=== PATIENT | male | born 1950 | race Caucasian/White ===

== ENCOUNTER → 2021-03-06 11:08 | Outpatient (CLI) | payer MEDICARE, OTHER, SELFPAY | PROVIDERS: PCP Family Medicine; Referring Provider Family Medicine; Visit Provider Family Medicine | DX: E11.628 Type 2 diabetes mellitus with other skin complications (principal); S91.302A Unspecified open wound, left foot, initial encounter; Z89.422 Acquired absence of other left toe(s); E11.51 Type 2 diabetes mellitus with diabetic peripheral angiopathy without gangrene; E11.22 Type 2 diabetes mellitus with diabetic chronic kidney disease; N18.30 Chronic kidney disease, stage 3 unspecified; Z79.01 Long term (current) use of anticoagulants; Z79.2 Long term (current) use of antibiotics | CPT/HCPCS: 11044; 11047; 97605; 99204; 99213 ==

== ENCOUNTER → 2021-03-12 09:53 | Outpatient (CLI) | payer MEDICARE, OTHER, SELFPAY | PROVIDERS: PCP Family Medicine; Referring Provider Family Medicine; Visit Provider Family Medicine | DX: M86.172 Other acute osteomyelitis, left ankle and foot (principal); S91.302A Unspecified open wound, left foot, initial encounter; Z79.2 Long term (current) use of antibiotics; Z79.01 Long term (current) use of anticoagulants; Z89.422 Acquired absence of other left toe(s); I73.9 Peripheral vascular disease, unspecified; E11.621 Type 2 diabetes mellitus with foot ulcer; N18.30 Chronic kidney disease, stage 3 unspecified | CPT/HCPCS: 11043; 97605 ==

== ENCOUNTER → 2021-03-19 09:50 | Outpatient (CLI) | payer MEDICARE, OTHER, SELFPAY | PROVIDERS: PCP Family Medicine; Referring Provider Family Medicine; Visit Provider Family Medicine | DX: S91.302A Unspecified open wound, left foot, initial encounter (principal); R60.0 Localized edema | CPT/HCPCS: 99213 ==

== ENCOUNTER → 2021-03-27 14:22 | Outpatient (CLI) | payer MEDICARE, OTHER, SELFPAY | PROVIDERS: PCP Family Medicine; Referring Provider Family Medicine; Visit Provider Family Medicine | DX: E11.628 Type 2 diabetes mellitus with other skin complications (principal); S91.302A Unspecified open wound, left foot, initial encounter; M86.172 Other acute osteomyelitis, left ankle and foot; Z79.2 Long term (current) use of antibiotics; Z79.01 Long term (current) use of anticoagulants; Z89.422 Acquired absence of other left toe(s); E11.621 Type 2 diabetes mellitus with foot ulcer; N18.30 Chronic kidney disease, stage 3 unspecified; E11.51 Type 2 diabetes mellitus with diabetic peripheral angiopathy without gangrene; E11.22 Type 2 diabetes mellitus with diabetic chronic kidney disease; R60.0 Localized edema | CPT/HCPCS: 11043; 97605; 99214 ==

== ENCOUNTER → 2021-04-03 10:04 | Outpatient (CLI) | payer MEDICARE, OTHER, SELFPAY | PROVIDERS: PCP Family Medicine; Referring Provider Family Medicine; Visit Provider Family Medicine | DX: E11.621 Type 2 diabetes mellitus with foot ulcer (principal); T87.89 Other complications of amputation stump; L97.524 Non-pressure chronic ulcer of other part of left foot with necrosis of bone; M86.172 Other acute osteomyelitis, left ankle and foot; R60.0 Localized edema; E11.51 Type 2 diabetes mellitus with diabetic peripheral angiopathy without gangrene; Z79.2 Long term (current) use of antibiotics; Z79.01 Long term (current) use of anticoagulants; Z89.422 Acquired absence of other left toe(s); N18.30 Chronic kidney disease, stage 3 unspecified | CPT/HCPCS: 11044; 87070; 87075; 87205 ==

== ENCOUNTER → 2021-04-09 10:03 | Outpatient (CLI) | payer MEDICARE, OTHER, SELFPAY | PROVIDERS: PCP Family Medicine; Referring Provider Family Medicine; Visit Provider Family Medicine | DX: E11.628 Type 2 diabetes mellitus with other skin complications (principal); S91.302A Unspecified open wound, left foot, initial encounter; M86.272 Subacute osteomyelitis, left ankle and foot; E11.51 Type 2 diabetes mellitus with diabetic peripheral angiopathy without gangrene; Z79.2 Long term (current) use of antibiotics; Z79.01 Long term (current) use of anticoagulants; Z89.422 Acquired absence of other left toe(s); N18.30 Chronic kidney disease, stage 3 unspecified | CPT/HCPCS: 11042; 97605; 99213; 99214 ==

== ENCOUNTER → 2021-04-16 10:44 | Outpatient (CLI) | payer MEDICARE, OTHER, SELFPAY | PROVIDERS: PCP Family Medicine; Referring Provider Family Medicine; Visit Provider Family Medicine | DX: E11.621 Type 2 diabetes mellitus with foot ulcer (principal); L97.526 Non-pressure chronic ulcer of other part of left foot with bone involvement without evidence of necrosis; M86.272 Subacute osteomyelitis, left ankle and foot; Z89.422 Acquired absence of other left toe(s); I73.9 Peripheral vascular disease, unspecified; N18.30 Chronic kidney disease, stage 3 unspecified | CPT/HCPCS: 15275; 36415; 83036; 85651; 86140; Q4110 ==

== ENCOUNTER → 2021-04-16 11:37 | Outpatient (CLI) | payer MEDICARE, OTHER, SELFPAY ==
[2021-04-16 12:36] LABS: Hemoglobin A1C% w Est Avg Glu 7.1 % (4.0-6.0)
[2021-04-16 12:44] LABS: C-Reactive Protein Quant 0.5 mg/dL (<1.0)
[2021-04-16 12:51] LABS: Erythrocyte Sedimentation Rate 89 MM/HR (0-15)
== END ==
PROVIDERS: PCP Internal Medicine; Referring Provider Internal Medicine; Visit Provider Internal Medicine
DX: E11.621 Type 2 diabetes mellitus with foot ulcer (principal); M86.272 Subacute osteomyelitis, left ankle and foot
CPT/HCPCS: 36415; 83036; 85651; 86140

== ENCOUNTER → 2021-04-23 10:51 | Outpatient (CLI) | payer MEDICARE, OTHER, SELFPAY | PROVIDERS: PCP Internal Medicine; Referring Provider Internal Medicine; Visit Provider Family Medicine | DX: E11.628 Type 2 diabetes mellitus with other skin complications (principal); S91.302A Unspecified open wound, left foot, initial encounter; M86.272 Subacute osteomyelitis, left ankle and foot; R60.0 Localized edema; E11.51 Type 2 diabetes mellitus with diabetic peripheral angiopathy without gangrene; N18.30 Chronic kidney disease, stage 3 unspecified; E11.22 Type 2 diabetes mellitus with diabetic chronic kidney disease; I12.9 Hypertensive chronic kidney disease with stage 1 through stage 4 chronic kidney disease, or unspecified chronic kidney disease | CPT/HCPCS: 15275; Q4110 ==

== ENCOUNTER → 2021-05-01 10:30 | Outpatient (CLI) | payer MEDICARE, OTHER, SELFPAY | PROVIDERS: PCP Internal Medicine; Referring Provider Internal Medicine; Visit Provider Family Medicine | DX: E11.628 Type 2 diabetes mellitus with other skin complications (principal); S91.302A Unspecified open wound, left foot, initial encounter; Z89.422 Acquired absence of other left toe(s); E11.51 Type 2 diabetes mellitus with diabetic peripheral angiopathy without gangrene; L08.9 Local infection of the skin and subcutaneous tissue, unspecified; R60.0 Localized edema; N18.30 Chronic kidney disease, stage 3 unspecified; E11.22 Type 2 diabetes mellitus with diabetic chronic kidney disease | CPT/HCPCS: 11042; 87070; 87075; 87077; 87147; 87186; 87205; 97605 ==

== ENCOUNTER → 2021-05-10 15:48 | Outpatient (CLI) | payer MEDICARE, OTHER, SELFPAY | PROVIDERS: PCP Internal Medicine; Referring Provider Internal Medicine; Visit Provider Family Medicine | DX: T87.89 Other complications of amputation stump (principal); S91.105A Unspecified open wound of left lesser toe(s) without damage to nail, initial encounter | CPT/HCPCS: 97605 ==

== ENCOUNTER → 2021-05-17 10:09 | Outpatient (CLI) | payer MEDICARE, OTHER, SELFPAY | PROVIDERS: PCP Internal Medicine; Referring Provider Internal Medicine; Visit Provider Family Medicine | DX: T87.89 Other complications of amputation stump (principal); S91.302A Unspecified open wound, left foot, initial encounter; E11.628 Type 2 diabetes mellitus with other skin complications | CPT/HCPCS: 15275; 99213; 99214; Q4137 ==

== ENCOUNTER → 2021-05-24 14:12 | Outpatient (CLI) | payer MEDICARE, OTHER, SELFPAY | PROVIDERS: PCP Internal Medicine; Referring Provider Internal Medicine; Visit Provider Family Medicine | DX: T87.89 Other complications of amputation stump (principal); S91.105A Unspecified open wound of left lesser toe(s) without damage to nail, initial encounter; E11.628 Type 2 diabetes mellitus with other skin complications | CPT/HCPCS: 99213 ==

== ENCOUNTER → 2021-05-31 13:53 | Outpatient (CLI) | payer MEDICARE, OTHER, SELFPAY | PROVIDERS: PCP Internal Medicine; Referring Provider Internal Medicine; Visit Provider Family Medicine | DX: T87.89 Other complications of amputation stump (principal); S91.105A Unspecified open wound of left lesser toe(s) without damage to nail, initial encounter; E11.628 Type 2 diabetes mellitus with other skin complications; L08.9 Local infection of the skin and subcutaneous tissue, unspecified; I73.9 Peripheral vascular disease, unspecified; E11.59 Type 2 diabetes mellitus with other circulatory complications | CPT/HCPCS: 11043; 87070; 87075; 87077; 87186; 87205; 99213 ==

== ENCOUNTER → 2021-06-07 13:36 | Outpatient (CLI) | payer MEDICARE, OTHER, SELFPAY | PROVIDERS: PCP Internal Medicine; Referring Provider Internal Medicine; Visit Provider Family Medicine | DX: T87.89 Other complications of amputation stump (principal); S91.105A Unspecified open wound of left lesser toe(s) without damage to nail, initial encounter; E11.628 Type 2 diabetes mellitus with other skin complications; B96.29 Other Escherichia coli [E. coli] as the cause of diseases classified elsewhere | CPT/HCPCS: 11043; 99213 ==

== ENCOUNTER → 2021-06-21 13:27 | Outpatient (CLI) | payer MEDICARE, OTHER, SELFPAY | PROVIDERS: PCP Internal Medicine; Referring Provider Internal Medicine; Visit Provider Family Medicine | DX: E11.621 Type 2 diabetes mellitus with foot ulcer (principal); L97.516 Non-pressure chronic ulcer of other part of right foot with bone involvement without evidence of necrosis; Z89.422 Acquired absence of other left toe(s); I73.9 Peripheral vascular disease, unspecified; N18.30 Chronic kidney disease, stage 3 unspecified; S91.302A Unspecified open wound, left foot, initial encounter | CPT/HCPCS: 15275; 97597; 99213; Q4110 ==

== ENCOUNTER → 2021-06-28 13:17 | Outpatient (CLI) | payer MEDICARE, OTHER, SELFPAY | PROVIDERS: PCP Internal Medicine; Referring Provider Internal Medicine; Visit Provider Family Medicine | DX: E11.621 Type 2 diabetes mellitus with foot ulcer (principal); L97.516 Non-pressure chronic ulcer of other part of right foot with bone involvement without evidence of necrosis; S91.302A Unspecified open wound, left foot, initial encounter; Z89.422 Acquired absence of other left toe(s); N18.30 Chronic kidney disease, stage 3 unspecified; I73.9 Peripheral vascular disease, unspecified | CPT/HCPCS: 11044; 73630; 87070; 87075; 87205; 99214 ==

== ENCOUNTER → 2021-06-28 14:57 | Outpatient (CLI) | payer MEDICARE, OTHER, SELFPAY ==
--- NOTE | 2021-06-28 | DI.RAD.S_ITS ---
PROCEDURE: XR FOOT RT MIN 3V INDICATIONS: Type 2 diabetes mellitus with foot ulcer, EVAL FOR OSTEOMYEL TECHNIQUE: 3 views of the foot were acquired. COMPARISON: None. FINDINGS: Bones: No fractures or dislocations. No suspicious bony lesions. Mild 1st MTP and diffuse interphalangeal joint space narrowing with periarticular osteophyte formation. Mild midfoot joint narrowing with dorsal osteophytosis. Plantar and retrocalcaneal bone spurs. Juxta-articular lucencies involving the 1st MTP joint where there is mild soft tissue swelling. Soft tissues: No tibiotalar joint effusion. Achilles tendon appears normal. Vascular calcifications indicate atherosclerosis. IMPRESSION: Juxta-articular lucencies involving the 1st MTP joint which may be related to inflammatory arthropathy; however osteomyelitis can not be excluded and close clinical correlation and follow-up is recommended. Dictated by: Wilner Delgadillo [facility] Interpreted: Saad Ferrell MD on 06/28/2021 at 16:57 Transcribed by: TASIA on 06/28/2021 at 16:59 Approved by: Saad Ferrell M.D. on 06/28/2021 at 17:41
== END ==
PROVIDERS: PCP Internal Medicine; Referring Provider Family Medicine; Visit Provider Family Medicine
DX: E11.621 Type 2 diabetes mellitus with foot ulcer (principal)
CPT/HCPCS: 73630

== ENCOUNTER → 2021-07-04 13:05 | Outpatient (CLI) | payer MEDICARE, OTHER, SELFPAY | PROVIDERS: PCP Internal Medicine; Referring Provider Internal Medicine; Visit Provider Family Medicine | DX: E11.621 Type 2 diabetes mellitus with foot ulcer (principal); L97.516 Non-pressure chronic ulcer of other part of right foot with bone involvement without evidence of necrosis; S91.302A Unspecified open wound, left foot, initial encounter; Z89.422 Acquired absence of other left toe(s); I73.9 Peripheral vascular disease, unspecified; N18.30 Chronic kidney disease, stage 3 unspecified | CPT/HCPCS: 11042; 97597; 99213 ==

== ENCOUNTER → 2021-07-16 13:02 | Outpatient (CLI) | payer MEDICARE, OTHER, SELFPAY | PROVIDERS: PCP Internal Medicine; Referring Provider Internal Medicine; Visit Provider Family Medicine | DX: E11.621 Type 2 diabetes mellitus with foot ulcer (principal); L97.516 Non-pressure chronic ulcer of other part of right foot with bone involvement without evidence of necrosis; S91.302A Unspecified open wound, left foot, initial encounter; Z89.422 Acquired absence of other left toe(s); I73.9 Peripheral vascular disease, unspecified; N18.30 Chronic kidney disease, stage 3 unspecified; R53.83 Other fatigue; R53.1 Weakness | CPT/HCPCS: 15275; 36415; 80053; 85025; 85651; 86140; 99213; 99214; Q4110 ==

== ENCOUNTER → 2021-07-16 14:19 | Outpatient (CLI) | payer MEDICARE, OTHER, SELFPAY ==
[2021-07-16 14:50] LABS: Add Manual Diff / Slide Review NO; Basophils Absolute Auto 0 /uL (0-100); Basophils Percent Auto 0.3 % (0-2); Eosinophils Absolute Auto 100 /uL (0-450); Eosinophils Percent Auto 0.8 % (2-4); Hematocrit 33.1 % (41-53); Hemoglobin 10.9 g/dL (13.5-17.5); Lymphocytes Absolute Auto 600 /uL (1100-4500); Lymphocytes Percent Auto 7.7 % (25-40); Mean Corpuscular Hemoglobin 28.3 PG (26-34); Mean Corpuscular Volume 85.7 fL (80-100); Monocytes Absolute Auto 900 /uL (0-900); Monocytes Percent Auto 12.1 % (3-14); Neutrophils Absolute Auto 6200 /uL (1500-7000); Neutrophils Percent Auto 79.1 % (50-75); Platelet Count 272 X10^3/uL (150-400); Red Blood Cell Count 3.86 X10^6/uL (4.5-5.9); Red Cell Distribution Width 14.4 % (11.6-14.8); White Blood Cell Count 7.8 X10^3/uL (4.5-11.0)
[2021-07-16 15:24] LABS: Erythrocyte Sedimentation Rate > 140 MM/HR (0-15)
[2021-07-16 16:59] LABS: Alanine Aminotransferase 25 IU/L (<50); Albumin 3.9 g/dL (3.5-5.0); Albumin Globulin Ratio 1.3 (1.0-2.8); Alkaline Phosphatase 101 U/L (38-126); Aspartate Aminotransferase 27 IU/L (17-59); BUN Creatinine Ratio 27.5 (6-22); Bilirubin Total 0.5 mg/dL (0.2-1.3); Blood Urea Nitrogen 71 mg/dL (9-20); Calcium 9.5 mg/dL (8.4-10.2); Carbon Dioxide 17 mmol/L (22-32); Chloride 107 mmol/L (98-107); Estimated Glomerular Filt Rate 24.7 mL/min (>60); Globulin 2.9 g/dL (1.7-4.1); Glucose 213 mg/dL (80-110); HEMOLYSIS < 15 (0-50); Potassium 5.1 mmol/L (3.4-5.1); Sodium 142 mmol/L (137-145); Total Protein 6.8 g/dL (6.3-8.2)
[2021-07-16 17:29] LABS: C-Reactive Protein Quant 32.4 mg/dL (<1.0)
== END ==
PROVIDERS: PCP Internal Medicine; Referring Provider Family Medicine; Visit Provider Family Medicine
DX: L97.516 Non-pressure chronic ulcer of other part of right foot with bone involvement without evidence of necrosis (principal)
CPT/HCPCS: 36415; 80053; 85025; 85651; 86140

== ENCOUNTER → 2021-07-25 12:50 | Outpatient (CLI) | payer MEDICARE, OTHER, SELFPAY | PROVIDERS: PCP Internal Medicine; Referring Provider Internal Medicine; Visit Provider Family Medicine | DX: L97.516 Non-pressure chronic ulcer of other part of right foot with bone involvement without evidence of necrosis (principal); Z89.422 Acquired absence of other left toe(s); I73.9 Peripheral vascular disease, unspecified; N18.30 Chronic kidney disease, stage 3 unspecified; Z79.2 Long term (current) use of antibiotics; T87.89 Other complications of amputation stump; E11.621 Type 2 diabetes mellitus with foot ulcer; L97.524 Non-pressure chronic ulcer of other part of left foot with necrosis of bone | CPT/HCPCS: 11044; 87070; 87075; 87077; 87186; 87205; 93923; 97597; 99214 ==

== ENCOUNTER → 2021-08-01 08:45 | Outpatient (CLI) | payer MEDICARE, OTHER, SELFPAY ==
--- NOTE | 2021-08-01 08:46 | DI.MRI.S_ITS ---
PROCEDURE: MR FOOT LT WO/W CON INDICATIONS: Type 2 diabetes mellitus with foot ulcer TECHNIQUE: Noncontrast sagittal T1 spin echo and T2 fast spin echo with fat saturation, long-axis T1 spin echo and T2 fast spin echo with fat saturation; short-axis T1 spin echo, proton density fast spin echo, and T2 fast spin echo with fat saturation through the forefoot. Post-contrast short axis, long axis, and sagittal T1 spin echo with fat saturation through the forefoot. COMPARISON: None. FINDINGS: Image quality: Excellent. Bones and joints: Trans 5th metatarsal amputation with cortical irregularity, T1 hypointense signal, and enhancement, compatible with osteomyelitis. Faint T1 hypointense/T2 hyperintense signal is also seen in the distal 4th metatarsal (i.e. series 8, image 23), concerning for early osteomyelitis. The remaining visualized osseous structures demonstrate normal signal. The sesamoid bones appear in expected positions, without internal edema. Degenerative change of the medial hallux sesamoid. No metatarsophalangeal joint degeneration. Soft tissues: Reticulated and confluent T2 hyperintense signal with contrast enhancement of the dorsal soft tissues, compatible with edema/cellulitis. The visualized plantar foot muscles demonstrate normal bulk but T2 hyperintense signal, which may reflect reactive change . No substantial contrast enhancement to suggest myositis. The visualized flexor and extensor tendons appear intact, without tenosynovitis. The distal insertions of the peroneus brevis and longus tendons appear intact. The principal Lisfranc ligament appears intact. IMPRESSION: 1. Findings most consistent with osteomyelitis involving the 4th metatarsal head and 5th metatarsal amputation site. 2. Edematous change of the plantar foot muscles, favored to represent reactive change. Dictated by: Juan Turner M.D. on 08/01/2021 at 11:06 Approved by: Juan Turner M.D. on 08/01/2021 at 12:01
== END ==
PROVIDERS: PCP Internal Medicine; Referring Provider Family Medicine; Visit Provider Family Medicine
DX: E11.621 Type 2 diabetes mellitus with foot ulcer (principal)
CPT/HCPCS: 73720; A9579

== ENCOUNTER → 2021-08-01 10:48 | Outpatient (CLI) | payer MEDICARE, OTHER, SELFPAY | PROVIDERS: PCP Internal Medicine; Referring Provider Internal Medicine; Visit Provider Family Medicine | DX: E11.621 Type 2 diabetes mellitus with foot ulcer (principal); T87.89 Other complications of amputation stump; L97.526 Non-pressure chronic ulcer of other part of left foot with bone involvement without evidence of necrosis; L97.516 Non-pressure chronic ulcer of other part of right foot with bone involvement without evidence of necrosis; Z89.422 Acquired absence of other left toe(s); I73.9 Peripheral vascular disease, unspecified; N18.30 Chronic kidney disease, stage 3 unspecified; Z79.2 Long term (current) use of antibiotics; M86.672 Other chronic osteomyelitis, left ankle and foot | CPT/HCPCS: 11042; 73720; 97597; 99214; A9579 ==

== ENCOUNTER → 2021-08-16 10:58 | Outpatient (CLI) | payer MEDICARE, OTHER, SELFPAY | PROVIDERS: PCP Internal Medicine; Referring Provider Internal Medicine; Visit Provider Family Medicine | DX: E11.621 Type 2 diabetes mellitus with foot ulcer (principal); L97.524 Non-pressure chronic ulcer of other part of left foot with necrosis of bone; Z89.422 Acquired absence of other left toe(s); I73.9 Peripheral vascular disease, unspecified; N18.30 Chronic kidney disease, stage 3 unspecified; Z79.2 Long term (current) use of antibiotics; M86.672 Other chronic osteomyelitis, left ankle and foot | CPT/HCPCS: 11042; 99213 ==

== ENCOUNTER → 2021-08-29 09:44 | Outpatient (CLI) | payer MEDICARE, OTHER, SELFPAY | PROVIDERS: PCP Internal Medicine; Referring Provider Internal Medicine; Visit Provider Family Medicine | DX: E11.621 Type 2 diabetes mellitus with foot ulcer (principal); L97.524 Non-pressure chronic ulcer of other part of left foot with necrosis of bone; Z89.422 Acquired absence of other left toe(s); I73.9 Peripheral vascular disease, unspecified; N18.30 Chronic kidney disease, stage 3 unspecified; Z79.2 Long term (current) use of antibiotics; M86.672 Other chronic osteomyelitis, left ankle and foot | CPT/HCPCS: 11042; 99214 ==

== ENCOUNTER → 2021-08-30 15:20 | Outpatient (CLI) | payer MEDICARE, OTHER, SELFPAY ==
[2021-08-30 18:02] LABS: Add Manual Diff / Slide Review NO; Basophils Absolute Auto 0 /uL (0-100); Basophils Percent Auto 0.4 % (0-2); Eosinophils Absolute Auto 0 /uL (0-450); Eosinophils Percent Auto 0.3 % (2-4); Hematocrit 36.9 % (41-53); Hemoglobin 12.2 g/dL (13.5-17.5); Lymphocytes Absolute Auto 1500 /uL (1100-4500); Lymphocytes Percent Auto 18.6 % (25-40); Mean Corpuscular HGB Conc 33.1 % (30-36); Mean Corpuscular Hemoglobin 28.3 PG (26-34); Mean Corpuscular Volume 85.3 fL (80-100); Monocytes Absolute Auto 700 /uL (0-900); Monocytes Percent Auto 8.4 % (3-14); Neutrophils Absolute Auto 5700 /uL (1500-7000); Neutrophils Percent Auto 72.3 % (50-75); Platelet Count 282 X10^3/uL (150-400); Red Blood Cell Count 4.32 X10^6/uL (4.5-5.9); Red Cell Distribution Width 14.3 % (11.6-14.8); White Blood Cell Count 7.9 X10^3/uL (4.5-11.0)
[2021-08-30 18:45] LABS: Alanine Aminotransferase 35 IU/L (<50); Albumin 4.2 g/dL (3.5-5.0); Albumin Globulin Ratio 1.4 (1.0-2.8); Alkaline Phosphatase 79 U/L (38-126); Aspartate Aminotransferase 34 IU/L (17-59); BUN Creatinine Ratio 32.3 (6-22); Bilirubin Total 0.4 mg/dL (0.2-1.3); Blood Urea Nitrogen 87 mg/dL (9-20); C-Reactive Protein Quant < 0.5 mg/dL (<1.0); Calcium 9.7 mg/dL (8.4-10.2); Carbon Dioxide 18 mmol/L (22-32); Chloride 108 mmol/L (98-107); Estimated Glomerular Filt Rate 23.6 mL/min (>60); Globulin 2.9 g/dL (1.7-4.1); Glucose 132 mg/dL (80-110); HEMOLYSIS < 15 (0-50); Potassium 4.4 mmol/L (3.4-5.1); Sodium 140 mmol/L (137-145); Total Protein 7.1 g/dL (6.3-8.2)
[2021-08-30 19:44] LABS: Erythrocyte Sedimentation Rate 39 MM/HR (0-15)
== END ==
PROVIDERS: PCP Internal Medicine; Referring Provider Family Medicine; Visit Provider Family Medicine
DX: E11.621 Type 2 diabetes mellitus with foot ulcer (principal); Z79.2 Long term (current) use of antibiotics
CPT/HCPCS: 36415; 80053; 85025; 85651; 86140

== ENCOUNTER → 2021-10-03 10:09 | Outpatient (CLI) | payer MEDICARE, OTHER, SELFPAY | PROVIDERS: PCP Internal Medicine; Referring Provider Internal Medicine; Visit Provider Family Medicine | DX: E11.621 Type 2 diabetes mellitus with foot ulcer (principal); L97.522 Non-pressure chronic ulcer of other part of left foot with fat layer exposed; Z89.422 Acquired absence of other left toe(s); I73.9 Peripheral vascular disease, unspecified; Z79.2 Long term (current) use of antibiotics; M86.672 Other chronic osteomyelitis, left ankle and foot; N18.4 Chronic kidney disease, stage 4 (severe) | CPT/HCPCS: 15275; 99213; 99214; Q4110 ==

== ENCOUNTER → 2021-10-10 14:33 | Outpatient (CLI) | payer MEDICARE, OTHER, SELFPAY | PROVIDERS: PCP Internal Medicine; Referring Provider Internal Medicine; Visit Provider Family Medicine | DX: E11.621 Type 2 diabetes mellitus with foot ulcer (principal); L97.522 Non-pressure chronic ulcer of other part of left foot with fat layer exposed | CPT/HCPCS: 99212 ==

== ENCOUNTER → 2021-10-17 10:02 | Outpatient (CLI) | payer MEDICARE, OTHER, SELFPAY | PROVIDERS: PCP Internal Medicine; Referring Provider Internal Medicine; Visit Provider Family Medicine | DX: E11.621 Type 2 diabetes mellitus with foot ulcer (principal); L97.522 Non-pressure chronic ulcer of other part of left foot with fat layer exposed; I73.9 Peripheral vascular disease, unspecified; N18.30 Chronic kidney disease, stage 3 unspecified; Z89.422 Acquired absence of other left toe(s) | CPT/HCPCS: 11042; 99212; 99214 ==

== ENCOUNTER → 2021-10-24 09:13 | Outpatient (CLI) | payer MEDICARE, OTHER, SELFPAY | PROVIDERS: PCP Internal Medicine; Referring Provider Internal Medicine; Visit Provider Family Medicine | DX: E11.621 Type 2 diabetes mellitus with foot ulcer (principal); L97.422 Non-pressure chronic ulcer of left heel and midfoot with fat layer exposed; L97.522 Non-pressure chronic ulcer of other part of left foot with fat layer exposed; E11.22 Type 2 diabetes mellitus with diabetic chronic kidney disease; I12.9 Hypertensive chronic kidney disease with stage 1 through stage 4 chronic kidney disease, or unspecified chronic kidney disease; N18.30 Chronic kidney disease, stage 3 unspecified; Z89.422 Acquired absence of other left toe(s); Z79.01 Long term (current) use of anticoagulants; Z79.4 Long term (current) use of insulin | CPT/HCPCS: 99213; 99214 ==

== ENCOUNTER → 2021-11-14 09:31 | Outpatient (CLI) | payer MEDICARE, OTHER, SELFPAY | PROVIDERS: PCP Internal Medicine; Referring Provider Internal Medicine; Visit Provider Family Medicine | DX: Z09 Encounter for follow-up examination after completed treatment for conditions other than malignant neoplasm (principal); E11.22 Type 2 diabetes mellitus with diabetic chronic kidney disease; I12.9 Hypertensive chronic kidney disease with stage 1 through stage 4 chronic kidney disease, or unspecified chronic kidney disease; N18.30 Chronic kidney disease, stage 3 unspecified; I25.10 Atherosclerotic heart disease of native coronary artery without angina pectoris; Z89.422 Acquired absence of other left toe(s); Z87.2 Personal history of diseases of the skin and subcutaneous tissue | CPT/HCPCS: 99212 ==

== ENCOUNTER → 2023-04-04 08:22 | Outpatient (CLI) | payer MEDICARE, OTHER, SELFPAY | PROVIDERS: PCP Internal Medicine; Referring Provider Internal Medicine; Visit Provider Physician Assistant | DX: M86.18 Other acute osteomyelitis, other site (principal); E11.621 Type 2 diabetes mellitus with foot ulcer; L97.515 Non-pressure chronic ulcer of other part of right foot with muscle involvement without evidence of necrosis; R60.0 Localized edema | CPT/HCPCS: 11042; 87070; 87147; 87186; 87205; 99213; 99214 ==

== ENCOUNTER → 2023-04-11 08:38 | Outpatient (CLI) | payer MEDICARE, OTHER, SELFPAY | PROVIDERS: PCP Internal Medicine; Referring Provider Internal Medicine; Visit Provider Physician Assistant | DX: E11.621 Type 2 diabetes mellitus with foot ulcer (principal); L97.515 Non-pressure chronic ulcer of other part of right foot with muscle involvement without evidence of necrosis; R60.0 Localized edema | CPT/HCPCS: 99214 ==

== ENCOUNTER → 2023-05-01 10:30 | Outpatient (CLI) | payer MEDICARE, OTHER, SELFPAY | PROVIDERS: PCP Internal Medicine; Visit Provider Surgery | DX: E11.621 Type 2 diabetes mellitus with foot ulcer (principal); E11.628 Type 2 diabetes mellitus with other skin complications; S91.301A Unspecified open wound, right foot, initial encounter; T81.89XA Other complications of procedures, not elsewhere classified, initial encounter; L97.515 Non-pressure chronic ulcer of other part of right foot with muscle involvement without evidence of necrosis; L97.521 Non-pressure chronic ulcer of other part of left foot limited to breakdown of skin; E11.51 Type 2 diabetes mellitus with diabetic peripheral angiopathy without gangrene; M86.171 Other acute osteomyelitis, right ankle and foot; E11.40 Type 2 diabetes mellitus with diabetic neuropathy, unspecified | CPT/HCPCS: 11042; 11045; 97605; 99213 ==

== ENCOUNTER → 2023-05-07 13:23 | Outpatient (CLI) | payer MEDICARE, OTHER, SELFPAY | PROVIDERS: PCP Internal Medicine; Visit Provider Surgery | DX: S91.301A Unspecified open wound, right foot, initial encounter (principal); E11.628 Type 2 diabetes mellitus with other skin complications; M86.171 Other acute osteomyelitis, right ankle and foot; I73.9 Peripheral vascular disease, unspecified; R60.0 Localized edema; L53.9 Erythematous condition, unspecified | CPT/HCPCS: 11042 ==

== ENCOUNTER → 2023-05-16 10:31 | Outpatient (CLI) | payer MEDICARE, OTHER, SELFPAY | PROVIDERS: PCP Internal Medicine; Referring Provider Internal Medicine; Visit Provider Physician Assistant | DX: E11.21 Type 2 diabetes mellitus with diabetic nephropathy (principal); M86.171 Other acute osteomyelitis, right ankle and foot; T81.31XA Disruption of external operation (surgical) wound, not elsewhere classified, initial encounter; I73.9 Peripheral vascular disease, unspecified | CPT/HCPCS: 11043; 87070; 87075; 87205; 97605; 99212 ==

== ENCOUNTER → 2023-05-21 08:46 | Outpatient (CLI) | payer MEDICARE, OTHER, SELFPAY | PROVIDERS: PCP Internal Medicine; Visit Provider Surgery | DX: E11.621 Type 2 diabetes mellitus with foot ulcer (principal); L97.515 Non-pressure chronic ulcer of other part of right foot with muscle involvement without evidence of necrosis; M86.171 Other acute osteomyelitis, right ankle and foot; R60.0 Localized edema; L53.9 Erythematous condition, unspecified; E11.51 Type 2 diabetes mellitus with diabetic peripheral angiopathy without gangrene | CPT/HCPCS: 11042; 97605; 99212; 99213 ==

== ENCOUNTER → 2023-05-29 09:51 | Outpatient (CLI) | payer MEDICARE, OTHER, SELFPAY | PROVIDERS: PCP Internal Medicine; Visit Provider Surgery | DX: E11.621 Type 2 diabetes mellitus with foot ulcer (principal); Z89.421 Acquired absence of other right toe(s); L97.515 Non-pressure chronic ulcer of other part of right foot with muscle involvement without evidence of necrosis; M86.171 Other acute osteomyelitis, right ankle and foot; R60.0 Localized edema | CPT/HCPCS: 11042; 73630; 97605; 99213 ==

== ENCOUNTER → 2023-05-29 10:38 | Outpatient (CLI) | payer MEDICARE, OTHER, SELFPAY ==
--- NOTE | 2023-05-29 10:40 | DI.RAD.S_ITS ---
PROCEDURE: XR FOOT RT MIN 3V INDICATIONS: Ulcer on right foot TECHNIQUE: 3 views of the foot were acquired. COMPARISON: [facility], CR, XR FOOT RT MIN 3V, 06/28/2021, 14:55. FINDINGS: Bones: 5th toe amputation noted at the proximal metatarsal. Vacuum assisted device noted. Diffuse at school attic vascular calcification present. Posterior and plantar calcaneal spurs present. Soft tissues: No tibiotalar joint effusion. Achilles tendon appears normal. IMPRESSION: Healing 5th toe amputation with wound VAC in place Approved by: Janusz Lopez M.D. on 05/29/2023 at 15:01
== END ==
PROVIDERS: PCP Internal Medicine; Referring Provider Surgery; Visit Provider Surgery
DX: E11.621 Type 2 diabetes mellitus with foot ulcer (principal); Z89.421 Acquired absence of other right toe(s)
CPT/HCPCS: 73630

== ENCOUNTER → 2023-06-13 10:45 | Outpatient (CLI) | payer MEDICARE, OTHER, SELFPAY | PROVIDERS: PCP Internal Medicine; Visit Provider Physician Assistant | DX: E11.621 Type 2 diabetes mellitus with foot ulcer (principal); L97.515 Non-pressure chronic ulcer of other part of right foot with muscle involvement without evidence of necrosis; I10 Essential (primary) hypertension | CPT/HCPCS: 11042; 99213; 99214 ==

== ENCOUNTER → 2023-07-03 11:02 | Outpatient (CLI) | payer MEDICARE, OTHER, SELFPAY | PROVIDERS: PCP Internal Medicine; Visit Provider Surgery | DX: E11.621 Type 2 diabetes mellitus with foot ulcer (principal); M86.171 Other acute osteomyelitis, right ankle and foot; L97.515 Non-pressure chronic ulcer of other part of right foot with muscle involvement without evidence of necrosis; E11.51 Type 2 diabetes mellitus with diabetic peripheral angiopathy without gangrene; E11.40 Type 2 diabetes mellitus with diabetic neuropathy, unspecified; R60.0 Localized edema | CPT/HCPCS: 11042 ==

== ENCOUNTER → 2023-07-18 08:38 | Outpatient (CLI) | payer MEDICARE, OTHER, SELFPAY | PROVIDERS: PCP Internal Medicine; Visit Provider Surgery | DX: E11.621 Type 2 diabetes mellitus with foot ulcer (principal); L97.512 Non-pressure chronic ulcer of other part of right foot with fat layer exposed; E11.51 Type 2 diabetes mellitus with diabetic peripheral angiopathy without gangrene; R60.0 Localized edema | CPT/HCPCS: 11042; 99213 ==

== ENCOUNTER → 2023-08-04 10:00 | Outpatient (CLI) | payer MEDICARE, OTHER, SELFPAY | PROVIDERS: PCP Internal Medicine; Visit Provider Surgery | DX: E11.621 Type 2 diabetes mellitus with foot ulcer (principal); L97.512 Non-pressure chronic ulcer of other part of right foot with fat layer exposed; R60.0 Localized edema; E11.40 Type 2 diabetes mellitus with diabetic neuropathy, unspecified; E11.51 Type 2 diabetes mellitus with diabetic peripheral angiopathy without gangrene; E11.22 Type 2 diabetes mellitus with diabetic chronic kidney disease; I12.9 Hypertensive chronic kidney disease with stage 1 through stage 4 chronic kidney disease, or unspecified chronic kidney disease; N18.30 Chronic kidney disease, stage 3 unspecified; I25.119 Atherosclerotic heart disease of native coronary artery with unspecified angina pectoris; Z79.01 Long term (current) use of anticoagulants; Z79.82 Long term (current) use of aspirin; Z98.62 Peripheral vascular angioplasty status; Z89.421 Acquired absence of other right toe(s); Z89.422 Acquired absence of other left toe(s) | CPT/HCPCS: 11042 ==

== ENCOUNTER → 2023-08-26 08:47 | Outpatient (CLI) | payer MEDICARE, OTHER, SELFPAY | PROVIDERS: PCP Internal Medicine; Visit Provider Surgery | DX: L97.412 Non-pressure chronic ulcer of right heel and midfoot with fat layer exposed (principal); E11.621 Type 2 diabetes mellitus with foot ulcer; E11.22 Type 2 diabetes mellitus with diabetic chronic kidney disease; N18.30 Chronic kidney disease, stage 3 unspecified; I12.9 Hypertensive chronic kidney disease with stage 1 through stage 4 chronic kidney disease, or unspecified chronic kidney disease; E11.52 Type 2 diabetes mellitus with diabetic peripheral angiopathy with gangrene; I96 Gangrene, not elsewhere classified; R60.0 Localized edema | CPT/HCPCS: 97597; 99213 ==

== ENCOUNTER → 2023-09-04 13:13 | Outpatient (CLI) | payer MEDICARE, OTHER, SELFPAY | PROVIDERS: PCP Internal Medicine; Visit Provider Surgery | DX: E11.628 Type 2 diabetes mellitus with other skin complications (principal); Z86.31 Personal history of diabetic foot ulcer; R60.0 Localized edema; I12.9 Hypertensive chronic kidney disease with stage 1 through stage 4 chronic kidney disease, or unspecified chronic kidney disease; N18.30 Chronic kidney disease, stage 3 unspecified | CPT/HCPCS: 99213 ==

== ENCOUNTER 2024-01-16 22:07 | Inpatient (IN) | payer MEDICARE, OTHER, SELFPAY ==
[2024-01-16] VITALS (8 sets, daily range): BP systolic 146–154; BP diastolic 66–70; PULSE 85–92; RESP 16–27; TEMP 38.7; O2SAT 95–98; BMI 28.0
--- NOTE | 2024-01-16 22:18 | DI.CT.S_ITS ---
PROCEDURE: CT KIDNEY URETER BLADDER (KUB) INDICATIONS: fever, decreased energy, urostomy bag, mild right flank pain TECHNIQUE: Axial sections were acquired from the lung bases to the pubic symphysis. Coronal and sagittal reformats were performed. For radiation dose reduction, the following was used: automated exposure control, adjustment of mA and/or kV according to patient size. COMPARISON: None. FINDINGS: Image quality: Diagnostic. Lower Chest: No significant findings. URINARY: Right Kidney: No stones or hydronephrosis. Small foci of gas are seen within the collecting system. Right Ureter: No hydroureter. Left Kidney: No stones or hydronephrosis. Left Ureter: No hydroureter. Bladder: Surgically absent. ABDOMEN: Liver: No contour-deforming solid mass. Gallbladder: No radiopaque gallstones or wall thickening. Biliary ducts: No biliary dilation. Pancreas: No ductal dilation. Spleen: Size is within normal limits. Adrenal Glands: No adrenal nodules. Stomach and Bowel: Normal colonic caliber, without significant wall thickening. Right lower quadrant urostomy. Normal appendix. Peritoneum: No abnormal intraperitoneal fluid. No free air. Ventral Wall: No hernia. Abdominal Nodes: No enlarged retroperitoneal or mesenteric lymph nodes. Vessels: Aorta and inferior vena cava are normal in size. PELVIS: Pelvic Organs: Unremarkable. Pelvic Nodes: Unremarkable. Miscellaneous: Small bilateral fat containing inguinal hernias. Bones: Degenerative changes of the spine. IMPRESSION: Status post cystectomy and right lower quadrant urostomy. No hydronephrosis or stones. Small foci of gas within the right renal collecting system. This may be secondary to urostomy, emphysematous pyelonephritis is felt to be less likely, however recommend clinical correlation. Dictated by: Raymundo Hsieh M.D. on 01/16/2024 at 22:39 Approved by: Raymundo Hsieh M.D. on 01/16/2024 at 22:43
--- NOTE | 2024-01-16 22:18 | DI.RAD.S_ITS ---
PROCEDURE: XR CHEST 1V INDICATIONS: fever, decreased energy, urostomy bag, mild right flank pain TECHNIQUE: One view of the chest was acquired. COMPARISON: None. FINDINGS: Surgical changes and devices: None. Lungs and pleura: Lungs are clear. No pleural effusions or pneumothorax. Mediastinum: Mediastinal contours appear normal. Heart size is normal. Bones and chest wall: No suspicious bony lesions. Overlying soft tissues appear unremarkable. IMPRESSION: No acute cardiopulmonary abnormality is seen. Dictated by: Raymundo Hsieh M.D. on 01/16/2024 at 22:37 Approved by: Raymundo Hsieh M.D. on 01/16/2024 at 22:37
--- NOTE | 2024-01-16 22:20 | ED.NAVMDI ---
HPI - Nausea/Vomiting/Diarrhea <Iraida Castellano DO - Last Filed: 01/17/24 22:23> General Chief complaint: Urogenital-Male Stated complaint: N/V/Weakness Time Seen by Provider: 01/16/24 22:08 Source: patient, EMS, RN notes reviewed and old records reviewed Mode of arrival: EMS Limitations: no limitations History of Present Illness HPI Narrative: 74-year-old male with history of atrial fibrillation with prior ablation, diabetes, dyslipidemia, bladder cancer with a urostomy on aspirin and Plavix patient presents with complaint of just feeling generally out of energy and having some mild nausea and vomiting. Patient states he is felt bad for the past 2 or 3 days. Had a temp of 101? F with EMS. He denies any fevers or chills otherwise. Denies any chest pain or shortness of breath. Denies any diarrhea or constipation, states his urine from his urostomy bag has not had any changes in output, no discoloration. He does note he has had a little bit of right-sided low back pain that he describes as mild. He denies any swelling of extremities. No rash or skin changes. States he has just been out of energy. He is on aspirin, Plavix, insulin, Crestor, he has had prior ablation in 2018 which seemed to resolve his atrial fibrillation, he had urostomy for bladder cancer and no longer has a bladder. 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 He does not have any known drug allergies. No tobacco has 2 or 3 oz of scotch daily, no recreational drugs. His primary care is Dr. [facility] and he follows with nephrology and Urology at [facility] as well. Family notes that his GFR is run between 20-25. Related Data Home Medications Medication Instructions Recorded Confirmed aspirin 81 mg tablet 81 mg PO DAILY 01/17/24 01/17/24 clopidogrel 75 mg tablet 75 mg PO DAILY 01/17/24 01/17/24 cyanocobalamin (vitamin B-12) 1,000 mcg IM QMONTH 01/17/24 01/17/24 1,000 mcg/mL injection solution insulin aspart U-100 100 unit/mL 5 unit SUBCUT QD-TID 01/17/24 01/17/24 (3 mL) subcutaneous pen (Novolog FlexPen U-100 Insulin aspart) insulin glargine 100 unit/mL (3 25 unit SUBCUT ONCE PM 01/17/24 01/17/24 mL) subcutaneous pen (Lantus Solostar U-100 Insulin) rosuvastatin 40 mg tablet 40 mg PO DAILY 01/17/24 01/17/24 sodium bicarbonate 650 mg tablet 650 mg 1XD 01/17/24 01/17/24 sodium polystyrene sulfonate 60 g PO 2XW 01/17/24 01/17/24 Allergies Allergy/AdvReac Type Severity Reaction Status Date / Time No Known Drug Allergies Allergy Verified 01/16/24 22:40 Review of Systems <Iraida Castellano DO - Last Filed: 01/17/24 22:23> Review of Systems ROS Unobtainable: All systems reviewed & are unremarkable except as noted in HPI and below Patient History <Iraida Castellano DO - Last Filed: 01/17/24 22:23> Social History household members: spouse Smoking Status: Former smoker Exam <Iraida Castellano DO - Last Filed: 01/17/24 22:23> Narrative Exam Narrative: GEN: well nourished, well appearing male, alert and oriented x 3, patient appears to be in mild distress. Patient is warm to the touch. HEENT: Atraumatic, pupils are equal round reactive to light, extraocular movements are intact, nares are clear, TMs are clear with no fluid, there is no conjunctival pallor. Throat is clear without any exudates, erythema, tonsillar enlargement or uvular deviation, no meningeal signs. HEART: Regular rate and rhythm without murmur, clicks, rubs. pulses are equal in upper and lower extremities LUNGS:Lungs clear to auscultation, no wheezes, rales, crackles, chest moves symmetrically, no tachypnea accessory muscle use. ABD:bowel sounds normal, soft, non-tender, no guarding, rebound, rigidity, no masses noted, no hepatosplenomegaly, patient has urostomy bag on his right lower abdomen with clear yellow urine. :No CVA tenderness MSCL: Non-tender, no muscle atrophy, muscles strength 5/5 upper and lower extremities, full range of motion NEURO:CN 2-12 intact, sensation normal SKIN: No rash, erythema or other skin changes Initial Vital Signs Initial Vital Signs: Vital Signs Temperature 101.6 F H 01/16/24 22:14 Pulse Rate 92 H 01/16/24 22:14 Respiratory Rate 16 01/16/24 22:14 Blood Pressure 154/70 H 01/16/24 22:14 Pulse Oximetry 98 01/16/24 22:14 Oxygen Delivery Method Room Air 01/16/24 22:14 <Adrian Kelly, DO - Last Filed: 01/17/24 08:54> Initial Vital Signs Initial Vital Signs: Vital Signs Temperature 101.6 F H 01/16/24 22:14 Pulse Rate 92 H 01/16/24 22:14 Respiratory Rate 16 01/16/24 22:14 Blood Pressure 154/70 H 01/16/24 22:14 Pulse Oximetry 98 01/16/24 22:14 Oxygen Delivery Method Room Air 01/16/24 22:14 Course <Iraida Castellano, DO - Last Filed: 01/17/24 22:23> Orders Ordered: Acetaminophen (Acetaminophen 325 Mg Tablet) 975 mg PO Q6HR PRN PRN Reason: Fever/Mild Pain (1-3) Aspirin (Aspirin Ec 81 Mg Tablet) 81 mg PO DAILY [facility] Atorvastatin Calcium (Atorvastatin 20 Mg Tablet) 80 mg PO BEDTIME [facility] Last Admin: 01/17/24 20:34 Dose: 80 mg Documented By: Clopidogrel Bisulfate (Clopidogrel 75 Mg Tablet) 75 mg PO DAILY [facility] Last Admin: 01/17/24 11:42 Dose: 75 mg Documented By: SANDRA Heparin Sodium (Porcine) (Heparin 5,000 Unit/Ml Vial) 5,000 unit SUBCUT BID [facility] Last Admin: 01/17/24 20:35 Dose: 5,000 unit Documented By: Admin: 01/17/24 10:53 Dose: 5,000 unit Documented By: SANDRA Ciprofloxacin (Cipro) 400 mg in 200 mls @ 200 mls/hr IV Q24H [facility] Last Infusion: 01/17/24 19:17 Dose: Infused Documented By: Admin: 01/17/24 12:12 Dose: 200 mls/hr Documented By: SANDRA Dextrose (D10w) 100 mls @ 999 mls/hr IV PRN PRN PRN Reason: Hypoglycemia Insulin Glargine (Insulin Glargine 100 Unit/Ml 3ml Pen) 20 unit SUBCUT Q24H [facility] Insulin Human Lispro (Insulin Lispro 100 Unit/Ml 3ml Vial) 0 unit SUBCUT ACHS [facility]; Protocol Last Admin: 01/17/24 20:35 Dose: Not Given Documented By: Admin: 01/17/24 17:15 Dose: 1 unit Documented By: SANDRA Co-signed By: CLEMENCIA Admin: 01/17/24 12:06 Dose: 1 unit Documented By: SANDRA Co-signed By: PATIENCE Melatonin (Melatonin 3 Mg Tablet) 6 mg PO BEDTIME PRN PRN Reason: Insomnia Naloxone HCl (Naloxone 0.4 Mg/Ml Vial) 0.2 mg IV Q2MIN PRN PRN Reason: Opiate Reversal Ondansetron HCl (Ondansetron 4 Mg/2 Ml Inj) 4 mg IV Q4HR PRN PRN Reason: Nausea And Vomiting Polyethylene Glycol (Polyethylene Glycol 3350 17 Gm Powd.Pack) 17 gm PO DAILY PRN PRN Reason: Constipation Sennosides (Sennosides 8.6 Mg Tablet) 8.6 mg PO BID PRN PRN Reason: Constipation Sodium Bicarbonate (Sodium Bicarbonate 650 Mg Tablet) 650 mg PO DAILY [facility] Last Admin: 01/17/24 11:42 Dose: 650 mg Documented By: SANDRA Discontinued Medications Acetaminophen (Acetaminophen 325 Mg Tablet) 975 mg PO NOW ONE Stop: 01/16/24 22:26 Last Admin: 01/16/24 22:33 Dose: 975 mg Documented By: CHRISTIN Sodium Chloride (Normal Saline 0.9%) 1,000 mls @ 1,000 mls/hr IV BOLUS ONE Stop: 01/16/24 23:24 Last Infusion: 01/17/24 00:59 Dose: Infused Documented By: Infusion: 01/16/24 23:39 Dose: 100 mls/hr Documented By: Admin: 01/16/24 22:46 Dose: 1,000 mls/hr Documented By: CHRISTIN Levofloxacin (Levaquin) 750 mg in 150 mls @ 100 mls/hr IV NOW ONE Stop: 01/17/24 00:26 Last Infusion: 01/17/24 00:58 Dose: Infused Documented By: Admin: 01/16/24 23:19 Dose: 100 mls/hr Documented By: CHRISTIN Lactated Ringer's (Lactated Ringers) 1,000 mls @ 150 mls/hr IV CONT MALIK Last Infusion: 01/17/24 08:50 Dose: Infused Documented By: Admin: 01/17/24 00:58 Dose: 150 mls/hr Documented By: CHRISTIN Sodium Chloride (Normal Saline 0.9%) 1,000 mls @ 100 mls/hr IV CONT MALIK Stop: 01/17/24 20:59 Last Admin: 01/17/24 11:03 Dose: 100 mls/hr Documented By: SANDRA Ciprofloxacin (Cipro) 400 mg in 200 mls @ 200 mls/hr IV Q12H [facility] Last Admin: 01/17/24 12:12 Dose: Not Given Documented By: SANDRA Insulin Glargine (Insulin Glargine 100 Unit/Ml 3ml Pen) 20 unit SUBCUT BEDTIME [facility] Last Admin: 01/17/24 20:35 Dose: Not Given Documented By: Vital Signs Vital signs: Vital Signs - 8 hr 01/17/24 01:00 01/17/24 01:00 01/17/24 01:30 Pulse Rate 73 Respiratory Rate 22 Blood Pressure 147/64 H 151/68 H Pulse Oximetry 98 Oxygen Delivery Method 01/17/24 01:30 01/17/24 02:00 01/17/24 02:00 Pulse Rate 71 68 Respiratory Rate 12 15 Blood Pressure 141/62 H Pulse Oximetry 97 97 Oxygen Delivery Method 01/17/24 02:30 01/17/24 02:30 01/17/24 03:00 Pulse Rate 67 Respiratory Rate 13 Blood Pressure 157/70 H 150/66 H Pulse Oximetry 98 Oxygen Delivery Method 01/17/24 03:00 01/17/24 03:30 01/17/24 03:30 Pulse Rate 64 63 Respiratory Rate 15 15 Blood Pressure 146/64 H Pulse Oximetry 97 99 Oxygen Delivery Method 01/17/24 04:00 01/17/24 04:00 01/17/24 04:30 Pulse Rate 63 63 Respiratory Rate 15 15 Blood Pressure 134/61 Pulse Oximetry 97 98 Oxygen Delivery Method 01/17/24 04:30 01/17/24 05:00 01/17/24 05:00 Pulse Rate 69 Respiratory Rate 14 Blood Pressure 160/71 H 163/73 H Pulse Oximetry 97 Oxygen Delivery Method 01/17/24 05:30 01/17/24 05:30 01/17/24 06:00 Pulse Rate 68 67 Respiratory Rate 9 L 16 Blood Pressure 170/74 H Pulse Oximetry 99 96 Oxygen Delivery Method 01/17/24 06:00 01/17/24 06:30 01/17/24 06:30 Pulse Rate 66 Respiratory Rate 12 Blood Pressure 178/76 H 187/75 H Pulse Oximetry 95 Oxygen Delivery Method 01/17/24 07:00 01/17/24 07:00 01/17/24 07:30 Pulse Rate 72 Respiratory Rate 16 Blood Pressure 160/69 H 145/65 H Pulse Oximetry 97 Oxygen Delivery Method Room Air 01/17/24 07:30 01/17/24 08:00 01/17/24 08:00 Pulse Rate 72 72 Respiratory Rate 13 16 Blood Pressure 184/79 H Pulse Oximetry 97 98 Oxygen Delivery Method 01/17/24 08:05 01/17/24 08:05 Pulse Rate 72 Respiratory Rate 23 Blood Pressure 147/67 H Pulse Oximetry 100 Oxygen Delivery Method <Adrian Kelly, DO - Last Filed: 01/17/24 08:54> Orders Ordered: Acetaminophen (Acetaminophen 325 Mg Tablet) 975 mg PO Q6HR PRN PRN Reason: Fever/Mild Pain (1-3) Aspirin (Aspirin Ec 81 Mg Tablet) 81 mg PO DAILY [facility] Atorvastatin Calcium (Atorvastatin 20 Mg Tablet) 80 mg PO BEDTIME [facility] Last Admin: 01/17/24 20:34 Dose: 80 mg Documented By: Clopidogrel Bisulfate (Clopidogrel 75 Mg Tablet) 75 mg PO DAILY [facility] Last Admin: 01/17/24 11:42 Dose: 75 mg Documented By: SADNRA Heparin Sodium (Porcine) (Heparin 5,000 Unit/Ml Vial) 5,000 unit SUBCUT BID [facility] Last Admin: 01/17/24 20:35 Dose: 5,000 unit Documented By: Admin: 01/17/24 10:53 Dose: 5,000 unit Documented By: SANDRA Ciprofloxacin (Cipro) 400 mg in 200 mls @ 200 mls/hr IV Q24H [facility] Last Infusion: 01/17/24 19:17 Dose: Infused Documented By: Admin: 01/17/24 12:12 Dose: 200 mls/hr Documented By: SANDRA Dextrose (D10w) 100 mls @ 999 mls/hr IV PRN PRN PRN Reason: Hypoglycemia Insulin Glargine (Insulin Glargine 100 Unit/Ml 3ml Pen) 20 unit SUBCUT Q24H [facility] Insulin Human Lispro (Insulin Lispro 100 Unit/Ml 3ml Vial) 0 unit SUBCUT ACHS [facility]; Protocol Last Admin: 01/17/24 20:35 Dose: Not Given Documented By: Admin: 01/17/24 17:15 Dose: 1 unit Documented By: SANDRA Co-signed By: CLEMENCIA Admin: 01/17/24 12:06 Dose: 1 unit Documented By: SANDRA Co-signed By: PATIENCE Melatonin (Melatonin 3 Mg Tablet) 6 mg PO BEDTIME PRN PRN Reason: Insomnia Naloxone HCl (Naloxone 0.4 Mg/Ml Vial) 0.2 mg IV Q2MIN PRN PRN Reason: Opiate Reversal Ondansetron HCl (Ondansetron 4 Mg/2 Ml Inj) 4 mg IV Q4HR PRN PRN Reason: Nausea And Vomiting Polyethylene Glycol (Polyethylene Glycol 3350 17 Gm Powd.Pack) 17 gm PO DAILY PRN PRN Reason: Constipation Sennosides (Sennosides 8.6 Mg Tablet) 8.6 mg PO BID PRN PRN Reason: Constipation Sodium Bicarbonate (Sodium Bicarbonate 650 Mg Tablet) 650 mg PO DAILY [facility] Last Admin: 01/17/24 11:42 Dose: 650 mg Documented By: SANDRA Discontinued Medications Acetaminophen (Acetaminophen 325 Mg Tablet) 975 mg PO NOW ONE Stop: 01/16/24 22:26 Last Admin: 01/16/24 22:33 Dose: 975 mg Documented By: CHRISTIN Sodium Chloride (Normal Saline 0.9%) 1,000 mls @ 1,000 mls/hr IV BOLUS ONE Stop: 01/16/24 23:24 Last Infusion: 01/17/24 00:59 Dose: Infused Documented By: Infusion: 01/16/24 23:39 Dose: 100 mls/hr Documented By: Admin: 01/16/24 22:46 Dose: 1,000 mls/hr Documented By: CHRISTIN Levofloxacin (Levaquin) 750 mg in 150 mls @ 100 mls/hr IV NOW ONE Stop: 01/17/24 00:26 Last Infusion: 01/17/24 00:58 Dose: Infused Documented By: Admin: 01/16/24 23:19 Dose: 100 mls/hr Documented By: CHIRSTIN Lactated Ringer's (Lactated Ringers) 1,000 mls @ 150 mls/hr IV CONT MALIK Last Infusion: 01/17/24 08:50 Dose: Infused Documented By: Admin: 01/17/24 00:58 Dose: 150 mls/hr Documented By: CHRISTIN Sodium Chloride (Normal Saline 0.9%) 1,000 mls @ 100 mls/hr IV CONT MALIK Stop: 01/17/24 20:59 Last Admin: 01/17/24 11:03 Dose: 100 mls/hr Documented By: SANDRA Ciprofloxacin (Cipro) 400 mg in 200 mls @ 200 mls/hr IV Q12H [facility] Last Admin: 01/17/24 12:12 Dose: Not Given Documented By: SANDRA Insulin Glargine (Insulin Glargine 100 Unit/Ml 3ml Pen) 20 unit SUBCUT BEDTIME [facility] Last Admin: 01/17/24 20:35 Dose: Not Given Documented By: Vital Signs Vital signs: Vital Signs - 8 hr 01/17/24 01:00 01/17/24 01:00 01/17/24 01:30 Pulse Rate 73 Respiratory Rate 22 Blood Pressure 147/64 H 151/68 H Pulse Oximetry 98 Oxygen Delivery Method 01/17/24 01:30 01/17/24 02:00 01/17/24 02:00 Pulse Rate 71 68 Respiratory Rate 12 15 Blood Pressure 141/62 H Pulse Oximetry 97 97 Oxygen Delivery Method 01/17/24 02:30 01/17/24 02:30 01/17/24 03:00 Pulse Rate 67 Respiratory Rate 13 Blood Pressure 157/70 H 150/66 H Pulse Oximetry 98 Oxygen Delivery Method 01/17/24 03:00 01/17/24 03:30 01/17/24 03:30 Pulse Rate 64 63 Respiratory Rate 15 15 Blood Pressure 146/64 H Pulse Oximetry 97 99 Oxygen Delivery Method 01/17/24 04:00 01/17/24 04:00 01/17/24 04:30 Pulse Rate 63 63 Respiratory Rate 15 15 Blood Pressure 134/61 Pulse Oximetry 97 98 Oxygen Delivery Method 01/17/24 04:30 01/17/24 05:00 01/17/24 05:00 Pulse Rate 69 Respiratory Rate 14 Blood Pressure 160/71 H 163/73 H Pulse Oximetry 97 Oxygen Delivery Method 01/17/24 05:30 01/17/24 05:30 01/17/24 06:00 Pulse Rate 68 67 Respiratory Rate 9 L 16 Blood Pressure 170/74 H Pulse Oximetry 99 96 Oxygen Delivery Method 01/17/24 06:00 01/17/24 06:30 01/17/24 06:30 Pulse Rate 66 Respiratory Rate 12 Blood Pressure 178/76 H 187/75 H Pulse Oximetry 95 Oxygen Delivery Method 01/17/24 07:00 01/17/24 07:00 01/17/24 07:30 Pulse Rate 72 Respiratory Rate 16 Blood Pressure 160/69 H 145/65 H Pulse Oximetry 97 Oxygen Delivery Method Room Air 01/17/24 07:30 01/17/24 08:00 01/17/24 08:00 Pulse Rate 72 72 Respiratory Rate 13 16 Blood Pressure 184/79 H Pulse Oximetry 97 98 Oxygen Delivery Method 01/17/24 08:05 01/17/24 08:05 Pulse Rate 72 Respiratory Rate 23 Blood Pressure 147/67 H Pulse Oximetry 100 Oxygen Delivery Method MDM - Nausea/Vomiting/Diarrhea <Iraida Castellano, - Last Filed: 01/17/24 22:23> Lab Data 01/17/24 06:32 01/17/24 06:32 Labs: Lab Results 01/16/24 01/16/24 01/16/24 Range/Units 22:11 22:44 22:49 WBC 12.4 H (4.5-11.0) X10^3/uL RBC 3.75 L (4.5-5.9) X10^6/uL Hgb 10.7 L (13.5-17.5) g/dL Hct 31.8 L (41-53) % MCV 85.0 (80-100) fL MCH 28.4 (26-34) PG MCHC 33.5 (30-36) % RDW 14.0 (11.6-14.8) % Plt Count 193 (150-400) X10^3/uL Neut % (Auto) 87.7 H (50-75) % Lymph % (Auto) 3.1 L (25-40) % [place] % (Auto) 8.8 (3-14) % Eos % (Auto) 0.1 L (2-4) % Baso % (Auto) 0.3 (0-2) % Neut # (Auto) 18595 H (7822-4896) /uL Lymph # (Auto) 400 L (9609-2444) /uL [place] # (Auto) 1100 H (0-900) /uL Eos # (Auto) 0 (0-450) /uL Baso # (Auto) 0 (0-100) /uL PT 15.1 H (9.4-12.5) SECONDS INR 1.3 (0.9-1.3) APTT 33 (25.1-36.5) SECONDS ABG Sample Site ABG pH (7.35-7.45) ABG pCO2 (35-45) mmHg ABG pO2 (80-100) mmHg ABG HCO3 (23-27) mmol/L ABG Total CO2 (23-27) mmol/L ABG O2 Saturation (95-100) % ABG Base Excess (-2-3) mmol/L FiO2 Sodium 136 L (137-145) mmol/L Potassium 4.3 (3.4-5.1) mmol/L Chloride 105 (98-107) mmol/L Carbon Dioxide 18 L (22-32) mmol/L BUN 61 H (9-20) mg/dL Creatinine 3.52 H (0.66-1.25) mg/dL Estimated GFR 18 L (>60) mL/min BUN/Creatinine Ratio 17.3 (6-22) Glucose 190 H (80-110) mg/dL Lactate 3.1 H (0.7-2.1) mmol/L Calcium 9.0 (8.4-10.2) mg/dL Magnesium (1.6-2.3) mg/dL Total Bilirubin 0.8 (0.2-1.3) mg/dL AST 23 (17-59) IU/L ALT 15 (<50) IU/L Alkaline Phosphatase 70 (38-126) U/L Total Creatine Kinase 527 H (55-170) U/L Troponin I 0.023 (0.01-0.034) ng/mL NT-Pro-B Natriuret Pep 572 H (<125) pg/mL Total Protein 7.1 (6.3-8.2) g/dL Albumin 4.1 (3.5-5.0) g/dL Globulin 3.0 (1.7-4.1) g/dL Albumin/Globulin Ratio 1.4 (1.0-2.8) Procalcitonin 4.36 H (<0.5) ng/mL Urine Color Urine Appearance Urine pH (4.5-8.0) Ur Specific [place] (1.000-1.035) Urine Protein (Negative) Urine Glucose (UA) (Negative) g/dL Urine Ketones (NEGATIVE) Urine Occult Blood (Negative) Urine Nitrate (Negative) Urine Bilirubin (NEGATIVE) Urine Urobilinogen (0.2) E.U./dL Ur Leukocyte Esterase (NEGATIVE) Urine RBC (0-5/HPF) Urine WBC (0-5/HPF) Ur Squamous Epith Cells (0-5/HPF) Amorphous Sediment Urine Bacteria (None) Ur Culture Indicated? Vol Urine Centrifuged A.calcoaceticus-baumannii cmplx PCR Not detected (Not Detect) Chlamy pneumoniae PCR Not detected (Not Detect) Adenovirus (PCR) Not detected (Not Detect) Bacteroides fragilis Not detected (Not Detect) B.parapertussis DNA PCR Not detected (Not Detecte) Antoinette albicans (PCR) Not detected (Not Detect) Antoinette auris (PCR) Not detected (Not Detect) C. glabrata (PCR) Not detected (Not Detect) C. krusei (PCR) Not detected (Not Detect) C. parapsilosis (PCR) Not detected (Not Detect) C. tropicalis (PCR) Not detected (Not Detect) Coronavirus OC43 (PCR) Not detected (Not Detect) Coronavirus HKU1 (PCR) Not detected (Not Detect) Coronavirus 229E (PCR) Not detected (Not Detect) SARS-CoV-2 (PCR) Not detected (Not Detecte) Coronavirus NL63 (PCR) Not detected (Not Detect) C. neoform/gattii (PCR) Not detected (Not Detect) Enterobacterales (PCR) Detected (Not Detect) E. cloacae complex PCR Not detected (Not Detect) Enterococc faecalis PCR Not detected (Not Detect) Enterococc faecium PCR Not detected (Not Detect) E. coli (PCR) Detected (Not Detect) H. influenzae (PCR) Not detected (Not Detect) Human Metapneumovir PCR Not detected (Not Detect) Influenza Type A (PCR) Not detected (Not Detect) Influenza Type B (PCR) Not detected (Not Detect) Klebsiella aerogenes (PCR) Not detected (Not Detect) Klebsiella oxytoca PCR Not detected (Not Detect) Klebsiella pneumoniae Not detected (Not Detect) List. monocytogenes PCR Not detected (Not Detect) M. pneumoniae (PCR) Not detected (Not Detect) N. meningitidis (PCR) Not detected (Not Detect) Parainfluenza 1 (PCR) Not detected (Not Detect) Parainfluenza 2 (PCR) Not detected (Not Detect) Parainfluenza 3 (PCR) Not detected (Not Detect) Parainfluenza 4 (PCR) Not detected (Not Detect) Proteus species (PCR) Not detected (Not Detect) RSV (PCR) Not detected (Not Detect) Entero/Rhino (PCR) Not detected (Not Detect) Salmonella spp. (PCR) Not detected (Not Detect) Serratia marcescens PCR Not detected (Not Detect) Staphylococcus sp PCR Not detected (Not Detect) Staph aureus (PCR) Not detected (Not Detect) mecA/C & MREJ Resist Gene Not applicable (Not Detect) mecA/C-Methicil Resis Gene Not applicable (Not Detect) mcr-1 Colistin Res Gene PCR Not detected (Not Detect) Staph epidermidis (PCR) Not detected (Not Detect) Staph lugdunensis PCR Not detected (Not Detect) S. maltophilia (PCR) Not detected (Not Detect) Streptococcus sp PCR Not detected (Not Detect) Group A Strep (PCR) Not detected (Not Detect) Strep agalactiae (PCR) Not detected (Not Detect) Strep pneumoniae (PCR) Not detected (Not Detect) P. aeruginosa (PCR) Not detected (Not Detect) Vance/B-Vanco Res Genes Not applicable (Not Detect) blaIMP Car res Gene PCR Not detected (Not Detect) KPC-Carbap Res Gene PCR Not detected (Not Detect) blaNDM Car Res Gene PCR Not detected (Not Detect) OXA-48 Carbapenem Resis Gene (PCR) Not detected (Not Detect) blaVIM Car Res Gene PCR Not detected (Not Detect) CTX-M Gene Resistance (PCR) Not detected (Not Detect) 01/16/24 01/17/24 01/17/24 Range/Units 23:55 00:19 00:28 WBC (4.5-11.0) X10^3/uL RBC (4.5-5.9) X10^6/uL Hgb (13.5-17.5) g/dL Hct (41-53) % MCV (80-100) fL MCH (26-34) PG MCHC (30-36) % RDW (11.6-14.8) % Plt Count (150-400) X10^3/uL Neut % (Auto) (50-75) % Lymph % (Auto) (25-40) % [place] % (Auto) (3-14) % Eos % (Auto) (2-4) % Baso % (Auto) (0-2) % Neut # (Auto) (2607-2868) /uL Lymph # (Auto) (2832-3627) /uL [place] # (Auto) (0-900) /uL Eos # (Auto) (0-450) /uL Baso # (Auto) (0-100) /uL PT (9.4-12.5) SECONDS INR (0.9-1.3) APTT (25.1-36.5) SECONDS ABG Sample Site Right radial ABG pH 7.38 (7.35-7.45) ABG pCO2 32.7 L (35-45) mmHg ABG pO2 80 (80-100) mmHg ABG HCO3 19 L (23-27) mmol/L ABG Total CO2 20 L (23-27) mmol/L ABG O2 Saturation 96 (95-100) % ABG Base Excess -6.0 L (-2-3) mmol/L FiO2 21 Sodium (137-145) mmol/L Potassium (3.4-5.1) mmol/L Chloride (98-107) mmol/L Carbon Dioxide (22-32) mmol/L BUN (9-20) mg/dL Creatinine (0.66-1.25) mg/dL Estimated GFR (>60) mL/min BUN/Creatinine Ratio (6-22) Glucose (80-110) mg/dL Lactate 0.7 (0.7-2.1) mmol/L Calcium (8.4-10.2) mg/dL Magnesium (1.6-2.3) mg/dL Total Bilirubin (0.2-1.3) mg/dL AST (17-59) IU/L ALT (<50) IU/L Alkaline Phosphatase (38-126) U/L Total Creatine Kinase (55-170) U/L Troponin I (0.01-0.034) ng/mL NT-Pro-B Natriuret Pep (<125) pg/mL Total Protein (6.3-8.2) g/dL Albumin (3.5-5.0) g/dL Globulin (1.7-4.1) g/dL Albumin/Globulin Ratio (1.0-2.8) Procalcitonin (<0.5) ng/mL Urine Color Yellow Urine Appearance Clear Urine pH 7.0 (4.5-8.0) Ur Specific [place] 1.010 (1.000-1.035) Urine Protein 3+ H (Negative) Urine Glucose (UA) Negative (Negative) g/dL Urine Ketones Negative (NEGATIVE) Urine Occult Blood 3+ H (Negative) Urine Nitrate Negative (Negative) Urine Bilirubin Negative (NEGATIVE) Urine Urobilinogen 0.2 (0.2) E.U./dL Ur Leukocyte Esterase 1+ H (NEGATIVE) Urine RBC 10-30/hpf H (0-5/HPF) Urine WBC 5-10/hpf H (0-5/HPF) Ur Squamous Epith Cells 0-1 /hpf (0-5/HPF) Amorphous Sediment 1+ Urine Bacteria Moderate (10-30) H (None) Ur Culture Indicated? Cult not indicated Vol Urine Centrifuged 10ml (spun) A.calcoaceticus-baumannii cmplx PCR (Not Detect) Chlamy pneumoniae PCR (Not Detect) Adenovirus (PCR) (Not Detect) Bacteroides fragilis (Not Detect) B.parapertussis DNA PCR (Not Detecte) Antoinette albicans (PCR) (Not Detect) Antoinette auris (PCR) (Not Detect) C. glabrata (PCR) (Not Detect) C. krusei (PCR) (Not Detect) C. parapsilosis (PCR) (Not Detect) C. tropicalis (PCR) (Not Detect) Coronavirus OC43 (PCR) (Not Detect) Coronavirus HKU1 (PCR) (Not Detect) Coronavirus 229E (PCR) (Not Detect) SARS-CoV-2 (PCR) (Not Detecte) Coronavirus NL63 (PCR) (Not Detect) C. neoform/gattii (PCR) (Not Detect) Enterobacterales (PCR) (Not Detect) E. cloacae complex PCR (Not Detect) Enterococc faecalis PCR (Not Detect) Enterococc faecium PCR (Not Detect) E. coli (PCR) (Not Detect) H. influenzae (PCR) (Not Detect) Human Metapneumovir PCR (Not Detect) Influenza Type A (PCR) (Not Detect) Influenza Type B (PCR) (Not Detect) Klebsiella aerogenes (PCR) (Not Detect) Klebsiella oxytoca PCR (Not Detect) Klebsiella pneumoniae (Not Detect) List. monocytogenes PCR (Not Detect) M. pneumoniae (PCR) (Not Detect) N. meningitidis (PCR) (Not Detect) Parainfluenza 1 (PCR) (Not Detect) Parainfluenza 2 (PCR) (Not Detect) Parainfluenza 3 (PCR) (Not Detect) Parainfluenza 4 (PCR) (Not Detect) Proteus species (PCR) (Not Detect) RSV (PCR) (Not Detect) Entero/Rhino (PCR) (Not Detect) Salmonella spp. (PCR) (Not Detect) Serratia marcescens PCR (Not Detect) Staphylococcus sp PCR (Not Detect) Staph aureus (PCR) (Not Detect) mecA/C & MREJ Resist Gene (Not Detect) mecA/C-Methicil Resis Gene (Not Detect) mcr-1 Colistin Res Gene PCR (Not Detect) Staph epidermidis (PCR) (Not Detect) Staph lugdunensis PCR (Not Detect) S. maltophilia (PCR) (Not Detect) Streptococcus sp PCR (Not Detect) Group A Strep (PCR) (Not Detect) Strep agalactiae (PCR) (Not Detect) Strep pneumoniae (PCR) (Not Detect) P. aeruginosa (PCR) (Not Detect) Vance/B-Vanco Res Genes (Not Detect) blaIMP Car res Gene PCR (Not Detect) KPC-Carbap Res Gene PCR (Not Detect) blaNDM Car Res Gene PCR (Not Detect) OXA-48 Carbapenem Resis Gene (PCR) (Not Detect) blaVIM Car Res Gene PCR (Not Detect) CTX-M Gene Resistance (PCR) (Not Detect) 01/17/24 Range/Units 06:32 WBC 8.7 (4.5-11.0) X10^3/uL RBC 2.83 L (4.5-5.9) X10^6/uL Hgb 8.1 L (13.5-17.5) g/dL Hct 24.6 L (41-53) % MCV 86.9 (80-100) fL MCH 28.6 (26-34) PG MCHC 32.9 (30-36) % RDW 14.0 (11.6-14.8) % Plt Count 165 (150-400) X10^3/uL Neut % (Auto) 85.9 H (50-75) % Lymph % (Auto) 4.8 L (25-40) % [place] % (Auto) 8.5 (3-14) % Eos % (Auto) 0.5 L (2-4) % Baso % (Auto) 0.3 (0-2) % Neut # (Auto) 7500 H (0653-4872) /uL Lymph # (Auto) 400 L (5622-6587) /uL [place] # (Auto) 700 (0-900) /uL Eos # (Auto) 0 (0-450) /uL Baso # (Auto) 0 (0-100) /uL PT (9.4-12.5) SECONDS INR (0.9-1.3) APTT (25.1-36.5) SECONDS ABG Sample Site ABG pH (7.35-7.45) ABG pCO2 (35-45) mmHg ABG pO2 (80-100) mmHg ABG HCO3 (23-27) mmol/L ABG Total CO2 (23-27) mmol/L ABG O2 Saturation (95-100) % ABG Base Excess (-2-3) mmol/L FiO2 Sodium 136 L (137-145) mmol/L Potassium 3.7 (3.4-5.1) mmol/L Chloride 108 H (98-107) mmol/L Carbon Dioxide 20 L (22-32) mmol/L BUN 60 H (9-20) mg/dL Creatinine 3.12 H (0.66-1.25) mg/dL Estimated GFR 20 L (>60) mL/min BUN/Creatinine Ratio 19.2 (6-22) Glucose 149 H (80-110) mg/dL Lactate (0.7-2.1) mmol/L Calcium 8.0 L (8.4-10.2) mg/dL Magnesium 2.0 (1.6-2.3) mg/dL Total Bilirubin 0.7 (0.2-1.3) mg/dL AST 25 (17-59) IU/L ALT 12 (<50) IU/L Alkaline Phosphatase 58 (38-126) U/L Total Creatine Kinase (55-170) U/L Troponin I (0.01-0.034) ng/mL NT-Pro-B Natriuret Pep (<125) pg/mL Total Protein 6.3 (6.3-8.2) g/dL Albumin 3.5 (3.5-5.0) g/dL Globulin 2.8 (1.7-4.1) g/dL Albumin/Globulin Ratio 1.3 (1.0-2.8) Procalcitonin (<0.5) ng/mL Urine Color Urine Appearance Urine pH (4.5-8.0) Ur Specific [place] (1.000-1.035) Urine Protein (Negative) Urine Glucose (UA) (Negative) g/dL Urine Ketones (NEGATIVE) Urine Occult Blood (Negative) Urine Nitrate (Negative) Urine Bilirubin (NEGATIVE) Urine Urobilinogen (0.2) E.U./dL Ur Leukocyte Esterase (NEGATIVE) Urine RBC (0-5/HPF) Urine WBC (0-5/HPF) Ur Squamous Epith Cells (0-5/HPF) Amorphous Sediment Urine Bacteria (None) Ur Culture Indicated? Vol Urine Centrifuged A.calcoaceticus-baumannii cmplx PCR (Not Detect) Chlamy pneumoniae PCR (Not Detect) Adenovirus (PCR) (Not Detect) Bacteroides fragilis (Not Detect) B.parapertussis DNA PCR (Not Detecte) Antoinette albicans (PCR) (Not Detect) Antoinette auris (PCR) (Not Detect) C. glabrata (PCR) (Not Detect) C. krusei (PCR) (Not Detect) C. parapsilosis (PCR) (Not Detect) C. tropicalis (PCR) (Not Detect) Coronavirus OC43 (PCR) (Not Detect) Coronavirus HKU1 (PCR) (Not Detect) Coronavirus 229E (PCR) (Not Detect) SARS-CoV-2 (PCR) (Not Detecte) Coronavirus NL63 (PCR) (Not Detect) C. neoform/gattii (PCR) (Not Detect) Enterobacterales (PCR) (Not Detect) E. cloacae complex PCR (Not Detect) Enterococc faecalis PCR (Not Detect) Enterococc faecium PCR (Not Detect) E. coli (PCR) (Not Detect) H. influenzae (PCR) (Not Detect) Human Metapneumovir PCR (Not Detect) Influenza Type A (PCR) (Not Detect) Influenza Type B (PCR) (Not Detect) Klebsiella aerogenes (PCR) (Not Detect) Klebsiella oxytoca PCR (Not Detect) Klebsiella pneumoniae (Not Detect) List. monocytogenes PCR (Not Detect) M. pneumoniae (PCR) (Not Detect) N. meningitidis (PCR) (Not Detect) Parainfluenza 1 (PCR) (Not Detect) Parainfluenza 2 (PCR) (Not Detect) Parainfluenza 3 (PCR) (Not Detect) Parainfluenza 4 (PCR) (Not Detect) Proteus species (PCR) (Not Detect) RSV (PCR) (Not Detect) Entero/Rhino (PCR) (Not Detect) Salmonella spp. (PCR) (Not Detect) Serratia marcescens PCR (Not Detect) Staphylococcus sp PCR (Not Detect) Staph aureus (PCR) (Not Detect) mecA/C & MREJ Resist Gene (Not Detect) mecA/C-Methicil Resis Gene (Not Detect) mcr-1 Colistin Res Gene PCR (Not Detect) Staph epidermidis (PCR) (Not Detect) Staph lugdunensis PCR (Not Detect) S. maltophilia (PCR) (Not Detect) Streptococcus sp PCR (Not Detect) Group A Strep (PCR) (Not Detect) Strep agalactiae (PCR) (Not Detect) Strep pneumoniae (PCR) (Not Detect) P. aeruginosa (PCR) (Not Detect) Vance/B-Vanco Res Genes (Not Detect) blaIMP Car res Gene PCR (Not Detect) KPC-Carbap Res Gene PCR (Not Detect) blaNDM Car Res Gene PCR (Not Detect) OXA-48 Carbapenem Resis Gene (PCR) (Not Detect) blaVIM Car Res Gene PCR (Not Detect) CTX-M Gene Resistance (PCR) (Not Detect) Urine Dip Bedside Urine Glucose Negative Bedside Urine Bilirubin - Negative Bedside Urine Ketone - Negative Urine Specific [place] 1.015 Bedside Urine Occult Blood +++ Bedside Urine pH 6.5 Bedside Urine Protein ++ 100 Bedside Urine Urobilinogen - Negative Bedside Urine Nitrite - Negative Bedside Urine Leukocytes ++ 125 Esterase ECG Data Attestation: I personally reviewed and interpreted this ECG as follows: Prior ECG tracings: available for review Interpretation: Normal sinus rhythm rate 87 CO 166 QRS 86 QTC 423. No acute ST changes appreciated. Patient has prior from 07/31/2023 that time was sinus tach no significant ST changes. MDM Narrative Medical decision making narrative: 74-year-old male with description of decreased energy some nausea and vomiting who is febrile, heart rate in the 100s, white count is 12.4 hemoglobin is 10.7 last for comparison is 3 years ago with platelets of 193 and a predominance of neutrophils. INR is 1.3. Sodium is 136 passing 4 3 chloride 105 with a CO2 18 BUN 61, creatinine 3.5 to glucose of 190 with a lactate of 3.1, total CK is 527 with a troponin of 0.023 and a BNP of size 72 and a procalcitonin of 4.36. UA Chest x-ray shows no acute change CT KUB shows small foci of gas within the collecting renal system on the right, bladder surgically absent. If this maybe secondary to urostomy emphysematous pyelonephritis is felt to be less likely however recommend clinical correlation. Suspect infection is patient's source of symptoms likely urinary infection. Patient was covered with Levaquin, received initial L bolus, continued with maintenance held off on 30 cc/kilos bolus. Patient also received Tylenol. Patient has had intermittent drops in her O2, patient does not have CPap at home, ABG shows a pH 7.37, pCO2 of 32 PO2 of 80 with a bicarb of 19. Patient is anticoagulated making pulmonary emboli less likely. Patient notes that he does have long pauses or he does not breathe when he is sleeping. Repeat lactate improved to 0.7. Urine shows 3+ protein 3+ blood, 1+ leuks 10-30 RBCs 5-10 WBCs moderate bacteria. Urine and blood cultures are pending. Respiratory panel is negative Discussed transfer as we do not have Urology today or Nephrology here locally. Patient gets care through [facility] but has been seen up at [facility]. Tried [place], [facility], [facility], [facility], [facility] and either no beds or waitlisted. Contacted [facility]. Plan for repeat am labs. Dr. Carlson at [facility] accepts but no bed availibity any time soon. Repeat labs pending, patient signed out to Dr. Kelly. Patient has had continuous fluids overnight dose IV antibiotics. Patient has not had any hypotension, no tachycardia his heart rate has improved. Respirations have been normal. Patient has been reluctant to transfer and discussed will await am labs and reevaluation. <Adrian Kelly, DO - Last Filed: 01/17/24 08:54> Lab Data Labs: Lab Results 01/16/24 01/16/24 01/16/24 Range/Units 22:11 22:44 22:49 WBC 12.4 H (4.5-11.0) X10^3/uL RBC 3.75 L (4.5-5.9) X10^6/uL Hgb 10.7 L (13.5-17.5) g/dL Hct 31.8 L (41-53) % MCV 85.0 (80-100) fL MCH 28.4 (26-34) PG MCHC 33.5 (30-36) % RDW 14.0 (11.6-14.8) % Plt Count 193 (150-400) X10^3/uL Neut % (Auto) 87.7 H (50-75) % Lymph % (Auto) 3.1 L (25-40) % [place] % (Auto) 8.8 (3-14) % Eos % (Auto) 0.1 L (2-4) % Baso % (Auto) 0.3 (0-2) % Neut # (Auto) 75067 H (7361-7388) /uL Lymph # (Auto) 400 L (1524-8742) /uL [place] # (Auto) 1100 H (0-900) /uL Eos # (Auto) 0 (0-450) /uL Baso # (Auto) 0 (0-100) /uL PT 15.1 H (9.4-12.5) SECONDS INR 1.3 (0.9-1.3) APTT 33 (25.1-36.5) SECONDS ABG Sample Site ABG pH (7.35-7.45) ABG pCO2 (35-45) mmHg ABG pO2 (80-100) mmHg ABG HCO3 (23-27) mmol/L ABG Total CO2 (23-27) mmol/L ABG O2 Saturation (95-100) % ABG Base Excess (-2-3) mmol/L FiO2 Sodium 136 L (137-145) mmol/L Potassium 4.3 (3.4-5.1) mmol/L Chloride 105 (98-107) mmol/L Carbon Dioxide 18 L (22-32) mmol/L BUN 61 H (9-20) mg/dL Creatinine 3.52 H (0.66-1.25) mg/dL Estimated GFR 18 L (>60) mL/min BUN/Creatinine Ratio 17.3 (6-22) Glucose 190 H (80-110) mg/dL Lactate 3.1 H (0.7-2.1) mmol/L Calcium 9.0 (8.4-10.2) mg/dL Magnesium (1.6-2.3) mg/dL Total Bilirubin 0.8 (0.2-1.3) mg/dL AST 23 (17-59) IU/L ALT 15 (<50) IU/L Alkaline Phosphatase 70 (38-126) U/L Total Creatine Kinase 527 H (55-170) U/L Troponin I 0.023 (0.01-0.034) ng/mL NT-Pro-B Natriuret Pep 572 H (<125) pg/mL Total Protein 7.1 (6.3-8.2) g/dL Albumin 4.1 (3.5-5.0) g/dL Globulin 3.0 (1.7-4.1) g/dL Albumin/Globulin Ratio 1.4 (1.0-2.8) Procalcitonin 4.36 H (<0.5) ng/mL Urine Color Urine Appearance Urine pH (4.5-8.0) Ur Specific [place] (1.000-1.035) Urine Protein (Negative) Urine Glucose (UA) (Negative) g/dL Urine Ketones (NEGATIVE) Urine Occult Blood (Negative) Urine Nitrate (Negative) Urine Bilirubin (NEGATIVE) Urine Urobilinogen (0.2) E.U./dL Ur Leukocyte Esterase (NEGATIVE) Urine RBC (0-5/HPF) Urine WBC (0-5/HPF) Ur Squamous Epith Cells (0-5/HPF) Amorphous Sediment Urine Bacteria (None) Ur Culture Indicated? Vol Urine Centrifuged A.calcoaceticus-baumannii cmplx PCR Not detected (Not Detect) Chlamy pneumoniae PCR Not detected (Not Detect) Adenovirus (PCR) Not detected (Not Detect) Bacteroides fragilis Not detected (Not Detect) B.parapertussis DNA PCR Not detected (Not Detecte) Antoinette albicans (PCR) Not detected (Not Detect) Antoinette auris (PCR) Not detected (Not Detect) C. glabrata (PCR) Not detected (Not Detect) C. krusei (PCR) Not detected (Not Detect) C. parapsilosis (PCR) Not detected (Not Detect) C. tropicalis (PCR) Not detected (Not Detect) Coronavirus OC43 (PCR) Not detected (Not Detect) Coronavirus HKU1 (PCR) Not detected (Not Detect) Coronavirus 229E (PCR) Not detected (Not Detect) SARS-CoV-2 (PCR) Not detected (Not Detecte) Coronavirus NL63 (PCR) Not detected (Not Detect) C. neoform/gattii (PCR) Not detected (Not Detect) Enterobacterales (PCR) Detected (Not Detect) E. cloacae complex PCR Not detected (Not Detect) Enterococc faecalis PCR Not detected (Not Detect) Enterococc faecium PCR Not detected (Not Detect) E. coli (PCR) Detected (Not Detect) H. influenzae (PCR) Not detected (Not Detect) Human Metapneumovir PCR Not detected (Not Detect) Influenza Type A (PCR) Not detected (Not Detect) Influenza Type B (PCR) Not detected (Not Detect) Klebsiella aerogenes (PCR) Not detected (Not Detect) Klebsiella oxytoca PCR Not detected (Not Detect) Klebsiella pneumoniae Not detected (Not Detect) List. monocytogenes PCR Not detected (Not Detect) M. pneumoniae (PCR) Not detected (Not Detect) N. meningitidis (PCR) Not detected (Not Detect) Parainfluenza 1 (PCR) Not detected (Not Detect) Parainfluenza 2 (PCR) Not detected (Not Detect) Parainfluenza 3 (PCR) Not detected (Not Detect) Parainfluenza 4 (PCR) Not detected (Not Detect) Proteus species (PCR) Not detected (Not Detect) RSV (PCR) Not detected (Not Detect) Entero/Rhino (PCR) Not detected (Not Detect) Salmonella spp. (PCR) Not detected (Not Detect) Serratia marcescens PCR Not detected (Not Detect) Staphylococcus sp PCR Not detected (Not Detect) Staph aureus (PCR) Not detected (Not Detect) mecA/C & MREJ Resist Gene Not applicable (Not Detect) mecA/C-Methicil Resis Gene Not applicable (Not Detect) mcr-1 Colistin Res Gene PCR Not detected (Not Detect) Staph epidermidis (PCR) Not detected (Not Detect) Staph lugdunensis PCR Not detected (Not Detect) S. maltophilia (PCR) Not detected (Not Detect) Streptococcus sp PCR Not detected (Not Detect) Group A Strep (PCR) Not detected (Not Detect) Strep agalactiae (PCR) Not detected (Not Detect) Strep pneumoniae (PCR) Not detected (Not Detect) P. aeruginosa (PCR) Not detected (Not Detect) Vance/B-Vanco Res Genes Not applicable (Not Detect) blaIMP Car res Gene PCR Not detected (Not Detect) KPC-Carbap Res Gene PCR Not detected (Not Detect) blaNDM Car Res Gene PCR Not detected (Not Detect) OXA-48 Carbapenem Resis Gene (PCR) Not detected (Not Detect) blaVIM Car Res Gene PCR Not detected (Not Detect) CTX-M Gene Resistance (PCR) Not detected (Not Detect) 01/16/24 01/17/24 01/17/24 Range/Units 23:55 00:19 00:28 WBC (4.5-11.0) X10^3/uL RBC (4.5-5.9) X10^6/uL Hgb (13.5-17.5) g/dL Hct (41-53) % MCV (80-100) fL MCH (26-34) PG MCHC (30-36) % RDW (11.6-14.8) % Plt Count (150-400) X10^3/uL Neut % (Auto) (50-75) % Lymph % (Auto) (25-40) % [place] % (Auto) (3-14) % Eos % (Auto) (2-4) % Baso % (Auto) (0-2) % Neut # (Auto) (9189-7764) /uL Lymph # (Auto) (7991-5337) /uL [place] # (Auto) (0-900) /uL Eos # (Auto) (0-450) /uL Baso # (Auto) (0-100) /uL PT (9.4-12.5) SECONDS INR (0.9-1.3) APTT (25.1-36.5) SECONDS ABG Sample Site Right radial ABG pH 7.38 (7.35-7.45) ABG pCO2 32.7 L (35-45) mmHg ABG pO2 80 (80-100) mmHg ABG HCO3 19 L (23-27) mmol/L ABG Total CO2 20 L (23-27) mmol/L ABG O2 Saturation 96 (95-100) % ABG Base Excess -6.0 L (-2-3) mmol/L FiO2 21 Sodium (137-145) mmol/L Potassium (3.4-5.1) mmol/L Chloride (98-107) mmol/L Carbon Dioxide (22-32) mmol/L BUN (9-20) mg/dL Creatinine (0.66-1.25) mg/dL Estimated GFR (>60) mL/min BUN/Creatinine Ratio (6-22) Glucose (80-110) mg/dL Lactate 0.7 (0.7-2.1) mmol/L Calcium (8.4-10.2) mg/dL Magnesium (1.6-2.3) mg/dL Total Bilirubin (0.2-1.3) mg/dL AST (17-59) IU/L ALT (<50) IU/L Alkaline Phosphatase (38-126) U/L Total Creatine Kinase (55-170) U/L Troponin I (0.01-0.034) ng/mL NT-Pro-B Natriuret Pep (<125) pg/mL Total Protein (6.3-8.2) g/dL Albumin (3.5-5.0) g/dL Globulin (1.7-4.1) g/dL Albumin/Globulin Ratio (1.0-2.8) Procalcitonin (<0.5) ng/mL Urine Color Yellow Urine Appearance Clear Urine pH 7.0 (4.5-8.0) Ur Specific [place] 1.010 (1.000-1.035) Urine Protein 3+ H (Negative) Urine Glucose (UA) Negative (Negative) g/dL Urine Ketones Negative (NEGATIVE) Urine Occult Blood 3+ H (Negative) Urine Nitrate Negative (Negative) Urine Bilirubin Negative (NEGATIVE) Urine Urobilinogen 0.2 (0.2) E.U./dL Ur Leukocyte Esterase 1+ H (NEGATIVE) Urine RBC 10-30/hpf H (0-5/HPF) Urine WBC 5-10/hpf H (0-5/HPF) Ur Squamous Epith Cells 0-1 /hpf (0-5/HPF) Amorphous Sediment 1+ Urine Bacteria Moderate (10-30) H (None) Ur Culture Indicated? Cult not indicated Vol Urine Centrifuged 10ml (spun) A.calcoaceticus-baumannii cmplx PCR (Not Detect) Chlamy pneumoniae PCR (Not Detect) Adenovirus (PCR) (Not Detect) Bacteroides fragilis (Not Detect) B.parapertussis DNA PCR (Not Detecte) Antoinette albicans (PCR) (Not Detect) Antoinette auris (PCR) (Not Detect) C. glabrata (PCR) (Not Detect) C. krusei (PCR) (Not Detect) C. parapsilosis (PCR) (Not Detect) C. tropicalis (PCR) (Not Detect) Coronavirus OC43 (PCR) (Not Detect) Coronavirus HKU1 (PCR) (Not Detect) Coronavirus 229E (PCR) (Not Detect) SARS-CoV-2 (PCR) (Not Detecte) Coronavirus NL63 (PCR) (Not Detect) C. neoform/gattii (PCR) (Not Detect) Enterobacterales (PCR) (Not Detect) E. cloacae complex PCR (Not Detect) Enterococc faecalis PCR (Not Detect) Enterococc faecium PCR (Not Detect) E. coli (PCR) (Not Detect) H. influenzae (PCR) (Not Detect) Human Metapneumovir PCR (Not Detect) Influenza Type A (PCR) (Not Detect) Influenza Type B (PCR) (Not Detect) Klebsiella aerogenes (PCR) (Not Detect) Klebsiella oxytoca PCR (Not Detect) Klebsiella pneumoniae (Not Detect) List. monocytogenes PCR (Not Detect) M. pneumoniae (PCR) (Not Detect) N. meningitidis (PCR) (Not Detect) Parainfluenza 1 (PCR) (Not Detect) Parainfluenza 2 (PCR) (Not Detect) Parainfluenza 3 (PCR) (Not Detect) Parainfluenza 4 (PCR) (Not Detect) Proteus species (PCR) (Not Detect) RSV (PCR) (Not Detect) Entero/Rhino (PCR) (Not Detect) Salmonella spp. (PCR) (Not Detect) Serratia marcescens PCR (Not Detect) Staphylococcus sp PCR (Not Detect) Staph aureus (PCR) (Not Detect) mecA/C & MREJ Resist Gene (Not Detect) mecA/C-Methicil Resis Gene (Not Detect) mcr-1 Colistin Res Gene PCR (Not Detect) Staph epidermidis (PCR) (Not Detect) Staph lugdunensis PCR (Not Detect) S. maltophilia (PCR) (Not Detect) Streptococcus sp PCR (Not Detect) Group A Strep (PCR) (Not Detect) Strep agalactiae (PCR) (Not Detect) Strep pneumoniae (PCR) (Not Detect) P. aeruginosa (PCR) (Not Detect) Vance/B-Vanco Res Genes (Not Detect) blaIMP Car res Gene PCR (Not Detect) KPC-Carbap Res Gene PCR (Not Detect) blaNDM Car Res Gene PCR (Not Detect) OXA-48 Carbapenem Resis Gene (PCR) (Not Detect) blaVIM Car Res Gene PCR (Not Detect) CTX-M Gene Resistance (PCR) (Not Detect) 01/17/24 Range/Units 06:32 WBC 8.7 (4.5-11.0) X10^3/uL RBC 2.83 L (4.5-5.9) X10^6/uL Hgb 8.1 L (13.5-17.5) g/dL Hct 24.6 L (41-53) % MCV 86.9 (80-100) fL MCH 28.6 (26-34) PG MCHC 32.9 (30-36) % RDW 14.0 (11.6-14.8) % Plt Count 165 (150-400) X10^3/uL Neut % (Auto) 85.9 H (50-75) % Lymph % (Auto) 4.8 L (25-40) % [place] % (Auto) 8.5 (3-14) % Eos % (Auto) 0.5 L (2-4) % Baso % (Auto) 0.3 (0-2) % Neut # (Auto) 7500 H (3076-4223) /uL Lymph # (Auto) 400 L (9960-4082) /uL [place] # (Auto) 700 (0-900) /uL Eos # (Auto) 0 (0-450) /uL Baso # (Auto) 0 (0-100) /uL PT (9.4-12.5) SECONDS INR (0.9-1.3) APTT (25.1-36.5) SECONDS ABG Sample Site ABG pH (7.35-7.45) ABG pCO2 (35-45) mmHg ABG pO2 (80-100) mmHg ABG HCO3 (23-27) mmol/L ABG Total CO2 (23-27) mmol/L ABG O2 Saturation (95-100) % ABG Base Excess (-2-3) mmol/L FiO2 Sodium 136 L (137-145) mmol/L Potassium 3.7 (3.4-5.1) mmol/L Chloride 108 H (98-107) mmol/L Carbon Dioxide 20 L (22-32) mmol/L BUN 60 H (9-20) mg/dL Creatinine 3.12 H (0.66-1.25) mg/dL Estimated GFR 20 L (>60) mL/min BUN/Creatinine Ratio 19.2 (6-22) Glucose 149 H (80-110) mg/dL Lactate (0.7-2.1) mmol/L Calcium 8.0 L (8.4-10.2) mg/dL Magnesium 2.0 (1.6-2.3) mg/dL Total Bilirubin 0.7 (0.2-1.3) mg/dL AST 25 (17-59) IU/L ALT 12 (<50) IU/L Alkaline Phosphatase 58 (38-126) U/L Total Creatine Kinase (55-170) U/L Troponin I (0.01-0.034) ng/mL NT-Pro-B Natriuret Pep (<125) pg/mL Total Protein 6.3 (6.3-8.2) g/dL Albumin 3.5 (3.5-5.0) g/dL Globulin 2.8 (1.7-4.1) g/dL Albumin/Globulin Ratio 1.3 (1.0-2.8) Procalcitonin (<0.5) ng/mL Urine Color Urine Appearance Urine pH (4.5-8.0) Ur Specific [place] (1.000-1.035) Urine Protein (Negative) Urine Glucose (UA) (Negative) g/dL Urine Ketones (NEGATIVE) Urine Occult Blood (Negative) Urine Nitrate (Negative) Urine Bilirubin (NEGATIVE) Urine Urobilinogen (0.2) E.U./dL Ur Leukocyte Esterase (NEGATIVE) Urine RBC (0-5/HPF) Urine WBC (0-5/HPF) Ur Squamous Epith Cells (0-5/HPF) Amorphous Sediment Urine Bacteria (None) Ur Culture Indicated? Vol Urine Centrifuged A.calcoaceticus-baumannii cmplx PCR (Not Detect) Chlamy pneumoniae PCR (Not Detect) Adenovirus (PCR) (Not Detect) Bacteroides fragilis (Not Detect) B.parapertussis DNA PCR (Not Detecte) Antoinette albicans (PCR) (Not Detect) Antoinette auris (PCR) (Not Detect) C. glabrata (PCR) (Not Detect) C. krusei (PCR) (Not Detect) C. parapsilosis (PCR) (Not Detect) C. tropicalis (PCR) (Not Detect) Coronavirus OC43 (PCR) (Not Detect) Coronavirus HKU1 (PCR) (Not Detect) Coronavirus 229E (PCR) (Not Detect) SARS-CoV-2 (PCR) (Not Detecte) Coronavirus NL63 (PCR) (Not Detect) C. neoform/gattii (PCR) (Not Detect) Enterobacterales (PCR) (Not Detect) E. cloacae complex PCR (Not Detect) Enterococc faecalis PCR (Not Detect) Enterococc faecium PCR (Not Detect) E. coli (PCR) (Not Detect) H. influenzae (PCR) (Not Detect) Human Metapneumovir PCR (Not Detect) Influenza Type A (PCR) (Not Detect) Influenza Type B (PCR) (Not Detect) Klebsiella aerogenes (PCR) (Not Detect) Klebsiella oxytoca PCR (Not Detect) Klebsiella pneumoniae (Not Detect) List. monocytogenes PCR (Not Detect) M. pneumoniae (PCR) (Not Detect) N. meningitidis (PCR) (Not Detect) Parainfluenza 1 (PCR) (Not Detect) Parainfluenza 2 (PCR) (Not Detect) Parainfluenza 3 (PCR) (Not Detect) Parainfluenza 4 (PCR) (Not Detect) Proteus species (PCR) (Not Detect) RSV (PCR) (Not Detect) Entero/Rhino (PCR) (Not Detect) Salmonella spp. (PCR) (Not Detect) Serratia marcescens PCR (Not Detect) Staphylococcus sp PCR (Not Detect) Staph aureus (PCR) (Not Detect) mecA/C & MREJ Resist Gene (Not Detect) mecA/C-Methicil Resis Gene (Not Detect) mcr-1 Colistin Res Gene PCR (Not Detect) Staph epidermidis (PCR) (Not Detect) Staph lugdunensis PCR (Not Detect) S. maltophilia (PCR) (Not Detect) Streptococcus sp PCR (Not Detect) Group A Strep (PCR) (Not Detect) Strep agalactiae (PCR) (Not Detect) Strep pneumoniae (PCR) (Not Detect) P. aeruginosa (PCR) (Not Detect) Vance/B-Vanco Res Genes (Not Detect) blaIMP Car res Gene PCR (Not Detect) KPC-Carbap Res Gene PCR (Not Detect) blaNDM Car Res Gene PCR (Not Detect) OXA-48 Carbapenem Resis Gene (PCR) (Not Detect) blaVIM Car Res Gene PCR (Not Detect) CTX-M Gene Resistance (PCR) (Not Detect) Urine Dip Bedside Urine Glucose Negative Bedside Urine Bilirubin - Negative Bedside Urine Ketone - Negative Urine Specific [place] 1.015 Bedside Urine Occult Blood +++ Bedside Urine pH 6.5 Bedside Urine Protein ++ 100 Bedside Urine Urobilinogen - Negative Bedside Urine Nitrite - Negative Bedside Urine Leukocytes ++ 125 Esterase MDM Narrative Medical decision making narrative: 74-year-old male with description of decreased energy some nausea and vomiting who is febrile, heart rate in the 100s, white count is 12.4 hemoglobin is 10.7 last for comparison is 3 years ago with platelets of 193 and a predominance of neutrophils. INR is 1.3. Sodium is 136 passing 4 3 chloride 105 with a CO2 18 BUN 61, creatinine 3.5 to glucose of 190 with a lactate of 3.1, total CK is 527 with a troponin of 0.023 and a BNP of size 72 and a procalcitonin of 4.36. UA Chest x-ray shows no acute change CT KUB shows small foci of gas within the collecting renal system on the right, bladder surgically absent. If this maybe secondary to urostomy emphysematous pyelonephritis is felt to be less likely however recommend clinical correlation. Suspect infection is patient's source of symptoms likely urinary infection. Patient was covered with Levaquin, received initial L bolus, continued with maintenance held off on 30 cc/kilos bolus. Patient also received Tylenol. Patient has had intermittent drops in her O2, patient does not have CPap at home, ABG shows a pH 7.37, pCO2 of 32 PO2 of 80 with a bicarb of 19. Patient is anticoagulated making pulmonary emboli less likely. Patient notes that he does have long pauses or he does not breathe when he is sleeping. Repeat lactate improved to 0.7. Urine shows 3+ protein 3+ blood, 1+ leuks 10-30 RBCs 5-10 WBCs moderate bacteria. Urine and blood cultures are pending. Respiratory panel is negative Discussed transfer as we do not have Urology today or Nephrology here locally. Patient gets care through [facility] but has been seen up at [facility]. Tried [place], [facility], [facility], [facility] and either no beds or waitlisted. Contacted [facility]. Plan for repeat am labs. Dr. Carlson at [facility] accepts but no bed availibity any time soon. Repeat labs pending, patient signed out to Dr. Kelly. Patient has had continuous fluids overnight dose IV antibiotics. Patient has not had any hypotension, no tachycardia his heart rate has improved. Respirations have been normal. Patient has been reluctant to transfer and discussed will await am labs and reevaluation. Dr kelly: Received turned over. Review patient's history and physical exam. Patient states he is feeling well. Tolerating oral intake. His labs have improved to include his GFR in his creatinine with fluids. I did discuss the case with Dr. nieves hospitalist on-call who will admit at this facility for continued treatment of pyelonephritis. Discharge Plan Departure Patient Disposition: Admitted As Inpatient Clinical Impression: Presence of urostomy, Acute on chronic kidney failure, Acute pyelonephritis Admit Date/Time: 01/17/24 08:45 Admit Provider: Jaziel Nieves
[2024-01-16 22:28] LABS: Add Manual Diff / Slide Review NO; Basophils Absolute Auto 0 /uL (0-100); Basophils Percent Auto 0.3 % (0-2); Eosinophils Absolute Auto 0 /uL (0-450); Eosinophils Percent Auto 0.1 % (2-4); Hematocrit 31.8 % (41-53); Hemoglobin 10.7 g/dL (13.5-17.5); Lymphocytes Absolute Auto 400 /uL (1100-4500); Lymphocytes Percent Auto 3.1 % (25-40); Mean Corpuscular HGB Conc 33.5 % (30-36); Mean Corpuscular Hemoglobin 28.4 PG (26-34); Monocytes Absolute Auto 1100 /uL (0-900); Monocytes Percent Auto 8.8 % (3-14); Neutrophils Absolute Auto 10900 /uL (1500-7000); Neutrophils Percent Auto 87.7 % (50-75); Platelet Count 193 X10^3/uL (150-400); Red Blood Cell Count 3.75 X10^6/uL (4.5-5.9); White Blood Cell Count 12.4 X10^3/uL (4.5-11.0)
[2024-01-16 22:32] LABS: Lactate (Lactic Acid) 3.1 mmol/L (0.7-2.1)
[2024-01-16] MEDS: ACETAMINOPHEN 325 MG TABLET 975 MG PO (22:33)
[2024-01-16 22:34] LABS: Alanine Aminotransferase 15 IU/L (<50); Albumin 4.1 g/dL (3.5-5.0); Albumin Globulin Ratio 1.4 (1.0-2.8); Alkaline Phosphatase 70 U/L (38-126); Aspartate Aminotransferase 23 IU/L (17-59); BUN Creatinine Ratio 17.3 (6-22); Bilirubin Total 0.8 mg/dL (0.2-1.3); Blood Urea Nitrogen 61 mg/dL (9-20); Carbon Dioxide 18 mmol/L (22-32); Chloride 105 mmol/L (98-107); Creatine Kinase 527 U/L (55-170); Estimated Glomerular Filt Rate 18 mL/min (>60); Glucose 190 mg/dL (80-110); HEMOLYSIS < 15 (0-50); Potassium 4.3 mmol/L (3.4-5.1); Sodium 136 mmol/L (137-145); Total Protein 7.1 g/dL (6.3-8.2)
[2024-01-16 22:44] LABS: INR 1.3 (0.9-1.3); Prothrombin Time 15.1 SECONDS (9.4-12.5)
[2024-01-16 22:45] LABS: NT-proBNP (BNP-Adult 18+) 572 pg/mL (<125); Troponin I 0.023 ng/mL (0.01-0.034)
[2024-01-16] MEDS: SODIUM CHLORIDE 0.9% 1,000 ML 1000 ML IV (22:46)
[2024-01-16 22:47] LABS: PTT Partial Thromboplastin Tim 33 SECONDS (25.1-36.5)
[2024-01-16 22:50] LABS: Procalcitonin 4.36 ng/mL (<0.5)
[2024-01-16] MEDS: levoFLOXacin 750 MG/150 ML PIGGYBACK 100 MG IV (23:19)
[2024-01-16 23:59] LABS: Reflexed Lactate in 2 Hours Y
[2024-01-17] VITALS (25 sets, daily range): BP systolic 134–187; BP diastolic 60–84; PULSE 63–95; RESP 9–24; TEMP 36.3–36.7; O2SAT 91–100; BMI 28.0
[2024-01-17 00:07] LABS: Appearance Urine UA CLEAR; Bilirubin Urine UA NEGATIVE (NEGATIVE); Color Urine UA YELLOW; Glucose Urine UA NEGATIVE (Negative); Ketones Urine UA NEGATIVE (NEGATIVE); Leukocyte Esterase Urine UA 1+ (NEGATIVE); Nitrite Urine UA NEGATIVE (Negative); Occult Blood Urine UA 3+ (Negative); Protein Urine UA 3+ (Negative); Urobilinogen Urine UA 0.2 E.U./dL (0.2)
[2024-01-17 00:15] LABS: Bacteria Urine Moderate (10-30); RBC Urine 10-30/HPF (0-5/HPF); Urine Volume 10mL (spun); WBC Urine 5-10/HPF (0-5/HPF)
--- NOTE | 2024-01-17 00:15 | PC.NURSE ---
Pt noted to have SPO2 sats in the mid to low 70s. LANDON Castellano advised and to pt bedside. Pts states that the pt experiences periods of apnea at home and he is sleeping per his normal. Pt states that he is not in any additional pain or distress while sleeping. Respiratory to be contacted for an abg.
[2024-01-17 00:16] LABS: Amorphous Sediment Urine 1+; Culture Indicated Urine Cult Not Indicated; Squamous Epithelial Cell Urine 0-1 /HPF (0-5/HPF)
[2024-01-17 00:27] LABS: Adenovirus Not Detected (Not Detect); B. parapertussis Not Detected (Not Detecte); Bordetella pertussis Not Detected (Not Detect); Chlamydophila pneumoniae Not Detected (Not Detect); Coronavirus 229E Not Detected (Not Detect); Coronavirus HKU1 Not Detected (Not Detect); Coronavirus NL 63 Not Detected (Not Detect); Coronavirus OC43 Not Detected (Not Detect); Human Metapneumovirus Not Detected (Not Detect); Human Rhinovirus/Enterovirus Not Detected (Not Detect); Influenza A Not Detected (Not Detect); Influenza B Not Detected (Not Detect); Mycoplasma pneumoniae Not Detected (Not Detect); Parainfluenza Virus 1 Not Detected (Not Detect); Parainfluenza Virus 2 Not Detected (Not Detect); Parainfluenza Virus 3 Not Detected (Not Detect); Parainfluenza Virus 4 Not Detected (Not Detect); Respiratory Syncytial Virus Not Detected (Not Detect); SARS- CoV-2 Not Detected (Not Detecte)
[2024-01-17 00:36] LABS: Lactate 2HR (Lactic Acid Rflx) 0.7 mmol/L (0.7-2.1)
[2024-01-17 00:49] LABS: PCO2 ABG 32.7 mmHg (35-45); PO2 ABG 80 mmHg (80-100); pH ABG 7.38 (7.35-7.45)
[2024-01-17 00:50] LABS: Allen Test for ABG Passed? Yes, Passed; Blood Gas Collection Site Right Radial; Fractionated Inspired Oxygen 21; HCO3 ABG 19 mmol/L (23-27); Oxygen Saturation ABG 96 % (95-100); TCO2 ABG 20 mmol/L (23-27)
[2024-01-17] MEDS: LACTATED RINGERS 1,000 ML 150 ML IV (00:58)
--- NOTE | 2024-01-17 01:35 | PC.NURSE ---
Addendum entered by Dana Fitzgerald CNA 01/17/24 04:47: AVTAR note: Patient has been accepted at [facility], but they don't have a bed for him. He is currently waitlisted. Original Note: AVTAR note: Attempting to transfer patient out. Contacted the following places with the following responses. [facility]: 0053- [place]. Full no waitlist. [facility]: 0055- [facility]- left a message. [facility]: 0056- [place]. No beds. Try again in the morning (at 0800). [facility]: 0058 [place] waitlist. [facility]: 0123 [facility] left a message [facility]: 0125- Shilpa Guzman- no beds right now. Patient is on their waitlist.
[2024-01-17 06:47] LABS: Add Manual Diff / Slide Review NO; Basophils Absolute Auto 0 /uL (0-100); Basophils Percent Auto 0.3 % (0-2); Eosinophils Absolute Auto 0 /uL (0-450); Eosinophils Percent Auto 0.5 % (2-4); Hematocrit 24.6 % (41-53); Hemoglobin 8.1 g/dL (13.5-17.5); Lymphocytes Absolute Auto 400 /uL (1100-4500); Lymphocytes Percent Auto 4.8 % (25-40); Mean Corpuscular HGB Conc 32.9 % (30-36); Mean Corpuscular Hemoglobin 28.6 PG (26-34); Mean Corpuscular Volume 86.9 fL (80-100); Monocytes Absolute Auto 700 /uL (0-900); Monocytes Percent Auto 8.5 % (3-14); Neutrophils Absolute Auto 7500 /uL (1500-7000); Neutrophils Percent Auto 85.9 % (50-75); Platelet Count 165 X10^3/uL (150-400); Red Blood Cell Count 2.83 X10^6/uL (4.5-5.9); White Blood Cell Count 8.7 X10^3/uL (4.5-11.0)
[2024-01-17 07:03] LABS: Alanine Aminotransferase 12 IU/L (<50); Albumin 3.5 g/dL (3.5-5.0); Albumin Globulin Ratio 1.3 (1.0-2.8); Alkaline Phosphatase 58 U/L (38-126); Aspartate Aminotransferase 25 IU/L (17-59); BUN Creatinine Ratio 19.2 (6-22); Bilirubin Total 0.7 mg/dL (0.2-1.3); Blood Urea Nitrogen 60 mg/dL (9-20); Carbon Dioxide 20 mmol/L (22-32); Chloride 108 mmol/L (98-107); Estimated Glomerular Filt Rate 20 mL/min (>60); Globulin 2.8 g/dL (1.7-4.1); Glucose 149 mg/dL (80-110); HEMOLYSIS < 15 (0-50); Potassium 3.7 mmol/L (3.4-5.1); Sodium 136 mmol/L (137-145); Total Protein 6.3 g/dL (6.3-8.2)
--- NOTE | 2024-01-17 08:33 | PC.NURSE ---
Chuck from [facility] called to check on patient's status. Chuck will reach out to [place] regarding a possible bed, and follow up with [facility] on patient's acceptance.
[2024-01-17] MEDS: HEPARIN 5,000 UNIT/ML VIAL 5000 UNIT SUBCUT ×2 (10:53→20:35)
[2024-01-17] MEDS: SODIUM CHLORIDE 0.9% 1,000 ML 100 ML IV (11:03)
[2024-01-17] MEDS: SODIUM BICARBONATE 650 MG TABLET PO (11:42)
[2024-01-17] MEDS: CLOPIDOGREL 75 MG TABLET PO (11:42)
--- NOTE | 2024-01-17 12:02 | PM.HP.1 ---
History of Present Illness <[facility] Last Filed: 01/17/24 12:20> History of Present Illness Chief complaint: N/V/Weakness Narrative: Franko Keene is a 68 YO M with a PMH of a-fib, bladder carcinoma, and DM2. He is presenting with fatigue and right sided flank pain. The pain started 2 days ago followed by noticeable weakness where he was unable to walk 5 feet without having to sit down. He has a a urostomy bag that was placed 5 years ago with no previous history of infections. He was given levofloxacin in the ER and now reports feeling much better. He is able to walk to the restroom on his own and is regaining his strength. He is still complaining of mild right sided flank pain. <Jaziel Nieves DO - Last Filed: 01/17/24 13:20> History of Present Illness Date Patient Seen: 01/17/24 Narrative: Franko Keene is a 68 YO M with a PMH of A-fib s/p ablation not on anticoag, bladder carcinoma s/p cystectomy and urostomy, and DM2. He is presenting with fatigue and right sided flank pain. The pain started 2 days ago followed by noticeable weakness where he was unable to walk 5 feet without having to sit down. He has a a urostomy that was placed 5 years ago with no previous history of UTI's. He was given levofloxacin in the ER and now reports feeling much better. He is able to walk to the restroom on his own and is regaining his strength. He is still complaining of mild right sided flank pain. Denies fevers, NV, abd pain or diarrhea. PFSH <[facility] Last Filed: 01/17/24 12:20> Social History household members: spouse Smoking Status: Former smoker Meds <[facility] Filed: 01/17/24 12:20> Home Medications and Allergies Home Medications Medication Instructions Recorded Confirmed Type aspirin 81 mg tablet 81 mg PO DAILY 01/17/24 01/17/24 History clopidogrel 75 mg tablet 75 mg PO DAILY 01/17/24 01/17/24 History cyanocobalamin (vitamin B-12) 1,000 mcg IM QMONTH 01/17/24 01/17/24 History 1,000 mcg/mL injection solution insulin aspart U-100 100 unit/mL 5 unit SUBCUT QD-TID 01/17/24 01/17/24 History (3 mL) subcutaneous pen (Novolog FlexPen U-100 Insulin aspart) insulin glargine 100 unit/mL (3 25 unit SUBCUT ONCE PM 01/17/24 01/17/24 History mL) subcutaneous pen (Lantus Solostar U-100 Insulin) rosuvastatin 40 mg tablet 40 mg PO DAILY 01/17/24 01/17/24 History sodium bicarbonate 650 mg tablet 650 mg 1XD 01/17/24 01/17/24 History sodium polystyrene sulfonate 60 g PO 2XW 01/17/24 01/17/24 History Allergies Allergy/AdvReac Type Severity Reaction Status Date / Time No Known Drug Allergies Allergy Verified 01/16/24 22:40 Review of Systems <[facility] Last Filed: 01/17/24 12:20> Review of Systems Narrative: Gen: + fever, - weight loss, - fatigue GI: - vomiting, -diarrhea : - frequency, - urgency, - pain/burning, - hematuria MSK: +flank pain, -swelling of joints Exam <[facility] Last Filed: 01/17/24 12:20> Vital Signs (past 8 hours): - 01/17/24 04:30 01/17/24 04:30 01/17/24 05:00 Temperature Pulse Rate 63 Respiratory Rate 15 Blood Pressure 160/71 H 163/73 H Pulse Oximetry 98 Oxygen Delivery Method 01/17/24 05:00 01/17/24 05:30 01/17/24 05:30 Temperature Pulse Rate 69 68 Respiratory Rate 14 9 L Blood Pressure 170/74 H Pulse Oximetry 97 99 Oxygen Delivery Method 01/17/24 06:00 01/17/24 06:00 01/17/24 06:30 Temperature Pulse Rate 67 66 Respiratory Rate 16 12 Blood Pressure 178/76 H Pulse Oximetry 96 95 Oxygen Delivery Method 01/17/24 06:30 01/17/24 07:00 01/17/24 07:00 Temperature Pulse Rate 72 Respiratory Rate 16 Blood Pressure 187/75 H 160/69 H Pulse Oximetry 97 Oxygen Delivery Method Room Air 01/17/24 07:30 01/17/24 07:30 01/17/24 08:00 Temperature Pulse Rate 72 72 Respiratory Rate 13 16 Blood Pressure 145/65 H Pulse Oximetry 97 98 Oxygen Delivery Method 01/17/24 08:00 01/17/24 08:05 01/17/24 08:05 Temperature Pulse Rate 72 Respiratory Rate 23 Blood Pressure 184/79 H 147/67 H Pulse Oximetry 100 Oxygen Delivery Method 01/17/24 08:30 01/17/24 08:30 01/17/24 09:00 Temperature Pulse Rate 72 Respiratory Rate 20 Blood Pressure 162/71 H 139/60 Pulse Oximetry 98 Oxygen Delivery Method Room Air 01/17/24 09:00 01/17/24 09:45 Temperature 97.8 F Pulse Rate 77 77 Respiratory Rate 24 16 Blood Pressure 181/63 H Pulse Oximetry 100 98 Oxygen Delivery Method Oxygen Delivery Method Room Air Narrative Exam Narrative: Gen: NAD, well appearing, interactive Resp: normal respiratory effort, no wheezing or rhonchi CV: RRR, no murmurs ABD: soft, non-distended, non tender in all 4 quadrants MSK: + flank pain Skin: b/l contusions on forearms <Jaziel Nieves DO - Last Filed: 01/17/24 13:20> Narrative Exam Narrative: Gen: NAD, well appearing, interactive Resp: normal respiratory effort, no wheezing or rhonchi CV: RRR, no murmurs ABD: soft, non-distended, non tender in all 4 quadrants MSK: + flank pain on R, positive Ruddy's sign Skin: b/l contusions on forearms Objective <Andreia Riddle - Last Filed: 01/17/24 12:20> Labs 01/17/24 06:32 01/17/24 06:32 Labs: Laboratory Results - last 24 hr 01/16/24 01/16/24 01/16/24 22:11 22:49 23:55 WBC 12.4 H RBC 3.75 L Hgb 10.7 L Hct 31.8 L MCV 85.0 MCH 28.4 MCHC 33.5 RDW 14.0 Plt Count 193 Neut % (Auto) 87.7 H Lymph % (Auto) 3.1 L [place] % (Auto) 8.8 Eos % (Auto) 0.1 L Baso % (Auto) 0.3 Neut # (Auto) 74616 H Lymph # (Auto) 400 L [place] # (Auto) 1100 H Eos # (Auto) 0 Baso # (Auto) 0 PT 15.1 H INR 1.3 APTT 33 ABG Sample Site ABG pH ABG pCO2 ABG pO2 ABG HCO3 ABG Total CO2 ABG O2 Saturation ABG Base Excess FiO2 Sodium 136 L Potassium 4.3 Chloride 105 Carbon Dioxide 18 L BUN 61 H Creatinine 3.52 H Estimated GFR 18 L BUN/Creatinine Ratio 17.3 Glucose 190 H Lactate 3.1 H Calcium 9.0 Magnesium Total Bilirubin 0.8 AST 23 ALT 15 Alkaline Phosphatase 70 Total Creatine Kinase 527 H Troponin I 0.023 NT-Pro-B Natriuret Pep 572 H Total Protein 7.1 Albumin 4.1 Globulin 3.0 Albumin/Globulin Ratio 1.4 Procalcitonin 4.36 H Urine Color Yellow Urine Appearance Clear Urine pH 7.0 Ur Specific [place] 1.010 Urine Protein 3+ H Urine Glucose (UA) Negative Urine Ketones Negative Urine Occult Blood 3+ H Urine Nitrate Negative Urine Bilirubin Negative Urine Urobilinogen 0.2 Ur Leukocyte Esterase 1+ H Urine RBC 10-30/hpf H Urine WBC 5-10/hpf H Ur Squamous Epith Cells 0-1 /hpf Amorphous Sediment 1+ Urine Bacteria Moderate (10-30) H Ur Culture Indicated? Cult not indicated Vol Urine Centrifuged 10ml (spun) Chlamy pneumoniae PCR Not detected Adenovirus (PCR) Not detected B.parapertussis DNA PCR Not detected Coronavirus OC43 (PCR) Not detected Coronavirus HKU1 (PCR) Not detected Coronavirus 229E (PCR) Not detected SARS-CoV-2 (PCR) Not detected Coronavirus NL63 (PCR) Not detected Human Metapneumovir PCR Not detected Influenza Type A (PCR) Not detected Influenza Type B (PCR) Not detected M. pneumoniae (PCR) Not detected Parainfluenza 1 (PCR) Not detected Parainfluenza 2 (PCR) Not detected Parainfluenza 3 (PCR) Not detected Parainfluenza 4 (PCR) Not detected RSV (PCR) Not detected Entero/Rhino (PCR) Not detected 01/17/24 01/17/24 01/17/24 00:19 00:28 06:32 WBC 8.7 RBC 2.83 L Hgb 8.1 L Hct 24.6 L MCV 86.9 MCH 28.6 MCHC 32.9 RDW 14.0 Plt Count 165 Neut % (Auto) 85.9 H Lymph % (Auto) 4.8 L [place] % (Auto) 8.5 Eos % (Auto) 0.5 L Baso % (Auto) 0.3 Neut # (Auto) 7500 H Lymph # (Auto) 400 L [place] # (Auto) 700 Eos # (Auto) 0 Baso # (Auto) 0 PT INR APTT ABG Sample Site Right radial ABG pH 7.38 ABG pCO2 32.7 L ABG pO2 80 ABG HCO3 19 L ABG Total CO2 20 L ABG O2 Saturation 96 ABG Base Excess -6.0 L FiO2 21 Sodium 136 L Potassium 3.7 Chloride 108 H Carbon Dioxide 20 L BUN 60 H Creatinine 3.12 H Estimated GFR 20 L BUN/Creatinine Ratio 19.2 Glucose 149 H Lactate 0.7 Calcium 8.0 L Magnesium 2.0 Total Bilirubin 0.7 AST 25 ALT 12 Alkaline Phosphatase 58 Total Creatine Kinase Troponin I NT-Pro-B Natriuret Pep Total Protein 6.3 Albumin 3.5 Globulin 2.8 Albumin/Globulin Ratio 1.3 Procalcitonin Urine Color Urine Appearance Urine pH Ur Specific [place] Urine Protein Urine Glucose (UA) Urine Ketones Urine Occult Blood Urine Nitrate Urine Bilirubin Urine Urobilinogen Ur Leukocyte Esterase Urine RBC Urine WBC Ur Squamous Epith Cells Amorphous Sediment Urine Bacteria Ur Culture Indicated? Vol Urine Centrifuged Chlamy pneumoniae PCR Adenovirus (PCR) B.parapertussis DNA PCR Coronavirus OC43 (PCR) Coronavirus HKU1 (PCR) Coronavirus 229E (PCR) SARS-CoV-2 (PCR) Coronavirus NL63 (PCR) Human Metapneumovir PCR Influenza Type A (PCR) Influenza Type B (PCR) M. pneumoniae (PCR) Parainfluenza 1 (PCR) Parainfluenza 2 (PCR) Parainfluenza 3 (PCR) Parainfluenza 4 (PCR) RSV (PCR) Entero/Rhino (PCR) Assessment & Plan <Andreia Lopezjuana - Last Filed: 01/17/24 12:20> Assessment & Plan narrative: #Pyelonephritis - pt has a urostomy bag which predisposes him to urinary infection - CT KUB showed no structural abnormalities, hydronephrosis or stones. - Start IV ciprofloxacin- per previous cultures that grew pseudomonas and ESBL both of which were sensitive to ciprofloxacin - Urine culture pending # Type II DM - perform blood glucose checks ACHS - continue insulin glargine and lispro PRN <Jaziel Nieves, DO - Last Filed: 01/17/24 13:20> Assessment & Plan narrative: # Acute Pyelonephritis - pt has a urostomy which predisposes him to urinary infection - CT KUB showed no structural abnormalities, hydronephrosis or stones. - Start IV ciprofloxacin- per previous wound cultures that grew pseudomonas and ESBL both of which were sensitive to ciprofloxacin - Urine and blood cultures pending # Type II DM - perform blood glucose checks ACHS - continue insulin glargine and lispro PRN # HLD - continue statin # h/o A-fib s/p ablation -not on anticoag # CKD -A1c 7.1% in 2020 -baseline around 3 -renally dose meds Code status is full code. DVT prophylaxis with heparin subQ. Proxy is Kelsy. I have reviewed home meds and used all available resources to reconcile the home meds. Case discussed with ED physician/APC and patient will be admitted to the hospitalist service for further workup and management. This patient will be admitted as observation and will require less than 2 midnights of hospital time to treat pyelonephritis.
[2024-01-17] MEDS: INSULIN LISPRO 100 UNIT/ML 3ML VIAL SUBCUT ×2 (12:06→17:15)
[2024-01-17] MEDS: CIPROFLOXACIN 400 MG/200 ML PIGGYBACK 200 MG IV (12:12)
[2024-01-17 13:26] LABS: Acinetobacter calcoa-baumannii Not Detected (Not Detect); Bacteroides fragilis Not Detected (Not Detect); CTX-M Resistance Not Detected (Not Detect); Candida albicans Not Detected (Not Detect); Candida auris Not Detected (Not Detect); Candida glabrata Not Detected (Not Detect); Candida krusei Not Detected (Not Detect); Candida parapsilosis Not Detected (Not Detect); Candida tropicalis Not Detected (Not Detect); Cryptococcus neoformans/gatti Not Detected (Not Detect); Enterobacter cloacae complex Not Detected (Not Detect); Enterobacterales Detected (Not Detect); Enterococcus faecalis Not Detected (Not Detect); Enterococcus faecium Not Detected (Not Detect); Haemophilus influenzae Not Detected (Not Detect); IMP Resistance Not Detected (Not Detect); KPC Resistance Not Detected (Not Detect); Klebsiella aerogenes Not Detected (Not Detect); Listeria monocytogenes Not Detected (Not Detect); NDM Resistance Not Detected (Not Detect); Neisseria meningitidis Not Detected (Not Detect); OXA-48-like Resistance Not Detected (Not Detect); Proteus species Not Detected (Not Detect); Pseudomonas aeruginosa Not Detected (Not Detect); Salmonella species Not Detected (Not Detect); Serratia marcescens Not Detected (Not Detect); Staphylococcus epidermidis Not Detected (Not Detect); Staphylococcus lugdunensis Not Detected (Not Detect); Staphylococcus species Not Detected (Not Detect); Stenotrophomonas maltophilia Not Detected (Not Detect); Streptococcus agalactiae (Gr B Not Detected (Not Detect); Streptococcus pneumonia Not Detected (Not Detect); Streptococcus pyogenes (Gr A) Not Detected (Not Detect); Streptococcus species Not Detected (Not Detect); VIM Resistance Not Detected (Not Detect); mcr-1 Resistance Not Detected (Not Detect)
[2024-01-17] MEDS: ATORVASTATIN 20 MG TABLET 80 MG PO (20:34)
[2024-01-18 00:34] VITALS: BP 154/49; PULSE 88; RESP 17; TEMP 36.7; O2SAT 98
[2024-01-18 05:11] LABS: Add Manual Diff / Slide Review NO; Basophils Absolute Auto 0 /uL (0-100); Basophils Percent Auto 0.2 % (0-2); Eosinophils Absolute Auto 0 /uL (0-450); Eosinophils Percent Auto 0.8 % (2-4); Hematocrit 28.4 % (41-53); Hemoglobin 9.6 g/dL (13.5-17.5); Lymphocytes Absolute Auto 400 /uL (1100-4500); Lymphocytes Percent Auto 7.9 % (25-40); Mean Corpuscular HGB Conc 33.9 % (30-36); Mean Corpuscular Hemoglobin 28.7 PG (26-34); Mean Corpuscular Volume 84.7 fL (80-100); Monocytes Absolute Auto 700 /uL (0-900); Neutrophils Absolute Auto 4000 /uL (1500-7000); Neutrophils Percent Auto 78.1 % (50-75); Platelet Count 163 X10^3/uL (150-400); Red Blood Cell Count 3.35 X10^6/uL (4.5-5.9); Red Cell Distribution Width 13.7 % (11.6-14.8); White Blood Cell Count 5.1 X10^3/uL (4.5-11.0)
[2024-01-18 05:25] LABS: Blood Urea Nitrogen 55 mg/dL (9-20); Calcium 8.3 mg/dL (8.4-10.2); Carbon Dioxide 22 mmol/L (22-32); Chloride 109 mmol/L (98-107); Estimated Glomerular Filt Rate 22 mL/min (>60); Glucose 124 mg/dL (80-110); HEMOLYSIS < 15 (0-50); Potassium 3.4 mmol/L (3.4-5.1); Sodium 139 mmol/L (137-145)
[2024-01-18 05:41] LABS: Procalcitonin 3.08 ng/mL (<0.5)
[2024-01-18 06:00] VITALS: BP 152/66; PULSE 62; RESP 17; TEMP 36.7; O2SAT 98
[2024-01-18 08:00] VITALS: BP 126/84; PULSE 86; RESP 16; TEMP 36.2; O2SAT 97
[2024-01-18] MEDS: INSULIN LISPRO 100 UNIT/ML 3ML VIAL SUBCUT (08:02)
[2024-01-18] MEDS: INSULIN GLARGINE 100 UNIT/ML 3ML PEN 20 UNIT SUBCUT (08:11)
[2024-01-18] MEDS: HEPARIN 5,000 UNIT/ML VIAL 5000 UNIT SUBCUT (08:20)
[2024-01-18] MEDS: ASPIRIN EC 81 MG TABLET PO (08:20)
[2024-01-18] MEDS: CLOPIDOGREL 75 MG TABLET PO (08:20)
[2024-01-18] MEDS: SODIUM BICARBONATE 650 MG TABLET PO (08:20)
--- NOTE | 2024-01-18 09:17 | CM.DANOTE ---
Patient is a 74 yo male who was admitted on 01/17/24 for Pyelonephritis. Pt has MCR and PRE BC MCR for insurance and his PCP is Dr. Moise Chery at the [facility]. EMR was reviewed. Per , pt with hx of AFIB and bladder CA with urostomy bag at baseline the last few years and DM. Pt admitted with pyelonephritis with IV-Abx and may be stable for discharge today pending labs. SW met bedside with pt and explained role and pt is very pleasant and conversant and confirms he and spouse live on their boat mostly time[place] in [place] and both are active and independent at baseline. Pt does not use DME for ambulation and still drives. Pt denies any hx of SNF or HH. Pt does not anticipate any discharge planning needs and preference is to discharge home today if medically stable. Pt confirms that their boat is currently docked at [facility] and spouse is in [place] as well and will assist getting him back to their boat and they have a w/c to use for the dock to get to the boat so that pt does not wear myself out just getting to our boat. Plan: SW to follow for likely pt discharge back to his boat with supportive spouse today vs tomorrow when medically stable and any further identified discharge planning needs. ELIANA Martinez Discharge Planning/Care Management CM Discharge Assessment Start: 01/18/24 09:15 Freq: Status: Active Protocol: Document 01/18/24 09:16 BF (Rec: 01/18/24 09:17 BF [id number]) Discharge Planning Assessment Assigned Document Control Manager ELIANA Zayas DPOA/Assigned Designee Name spouse Kelsy Contact Information [phone] Advance Directives? No Advance Directives on File No History Provided By Patient,Medical Record Has Patient been admitted in last 30 No days? Prior Living Arrangements Other Comment Boat Household Members spouse Type of transporation used prior to Drives own vehicle admit Comment Just bought a new Sudha Independent with ADL's Yes Is patient alert and oriented? Yes Caregiver for Another No DME Already Rented / Owned Cane Barriers to Discharge No Discharge Plan Home Transportation Arrangement spouse will help assist pt to their boat currently docked at [facility] Referrals Initiated None needed Whiteboard Updated in Patient Room with Yes name and ext. # of Document Control Manager Review Status In Process Please Provide Date Initial DC 01/18/24 Assessment Was Performed Next Review Type Continued Stay Review
--- NOTE | 2024-01-18 10:49 | P.DS_ITS ---
History of Present Illness <Andreia Riddle - Last Filed: 01/18/24 11:11> History of Present Illness Date Patient Seen: 01/17/24 Chief complaint: N/V/Weakness Narrative: Franko Keene is a 68 YO M with a PMH of a-fib, bladder carcinoma, and DM2. He is presenting with fatigue and right sided flank pain. The pain started 2 days ago followed by noticeable weakness where he was unable to walk 5 feet without having to sit down. He has a a urostomy bag that was placed 5 years ago with no previous history of infections. He was given levofloxacin in the ER and now reports feeling much better. He is able to walk to the restroom on his own and is regaining his strength. He is still complaining of mild right sided flank pain. <Jaziel Nieves DO - Last Filed: 01/18/24 11:39> History of Present Illness Narrative: Franko Keene is a 68 YO M with a PMH of A-fib s/p ablation not on anticoag, bladder carcinoma s/p cystectomy and urostomy, and DM2. He is presenting with fatigue and right sided flank pain. The pain started 2 days ago followed by noticeable weakness where he was unable to walk 5 feet without having to sit down. He has a a urostomy that was placed 5 years ago with no previous history of UTI's. He was given levofloxacin in the ER and now reports feeling much better. He is able to walk to the restroom on his own and is regaining his strength. He is still complaining of mild right sided flank pain. Denies fevers, NV, abd pain or diarrhea. Discharge Providers <Andreia Riddle - Last Filed: 01/18/24 11:11> Provider Date of admission: 01/17/24 08:45 Primary care physician: Moise Chery MD Discharge provider: Andreia Riddle <Jaziel Nieves DO - Last Filed: 01/18/24 11:39> Provider Discharge Date: 01/18/24 Summary <Andreia Riddle - Last Filed: 01/18/24 11:11> Hospital Course Discharge Diagnosis: # Acute Pyelonephritis - pt has a urostomy which predisposes him to urinary infection - CT KUB showed no structural abnormalities, hydronephrosis or stones. - Start IV ciprofloxacin- per previous wound cultures that grew pseudomonas and ESBL both of which were sensitive to ciprofloxacin - Urine and blood cultures pending # Type II DM - perform blood glucose checks ACHS - continue insulin glargine and lispro PRN # HLD - continue statin # h/o A-fib s/p ablation -not on anticoag # CKD -A1c 7.1% in 2020 -baseline around 3 -renally dose meds Hospital Course: pt was admitted for pyelonephritis he has a urostomy tube which predisposes him to urinary infections. His blood and urine cultures grew E. coli. He was given renally dosed ceftriaxone and improved significantly. Sensitivities will not be back till tomorrow. This was discussed with the patient and he prefers to go home on oral ceftriaxone without knowing sensitivities. He will continue a 2 week course of ceftriaxone to fully eradicate the infection. <Jaziel Nieves DO - Last Filed: 01/18/24 11:39> Hospital Course Discharge Diagnosis: # Acute Pyelonephritis, improved - pt has a urostomy which predisposes him to urinary infection - CT KUB showed no structural abnormalities, hydronephrosis or stones. - Start IV ciprofloxacin- per previous wound cultures that grew pseudomonas and ESBL both of which were sensitive to ciprofloxacin - Urine and blood cultures with GNB, PCR with E. coli without ESBL gene - patient had rapid recovery # Type II DM - perform blood glucose checks ACHS - continue insulin glargine and lispro PRN # HLD - continue statin # h/o A-fib s/p ablation -not on anticoag # CKD -A1c 7.1% in 2020 -baseline around 3 -renally dose meds Hospital Course: Patient admitted for pyelonephritis. His blood and urine cultures grew E. coli. He was given renally dosed levaquin, then cipro and improved significantly with faily rapid recovery. Sensitivities will not be back till tomorrow. This was discussed with the patient and he prefers to go home on oral cipro. He will continue a 2 week course of cipro renally dosed at 500mg daily. Exam <Andreia Riddle - Last Filed: 01/18/24 11:11> Vital Signs (past 8 hours): - 01/18/24 06:00 01/18/24 08:00 Temperature 98.1 F 97.1 F L Pulse Rate 62 86 Respiratory Rate 17 16 Blood Pressure 152/66 H 126/84 Pulse Oximetry 98 97 Oxygen Flow Rate 0 Oxygen Delivery Method Room Air Oxygen Flow Rate 0 Narrative Exam Narrative: Gen: NAD, well appearing, interactive Resp: normal respiratory effort, no wheezing or rhonchi CV: RRR, no murmurs ABD: soft, non-distended, non tender in all 4 quadrants MSK: + flank pain on R, positive Ruddy's sign Skin: b/l contusions on forearms Objective <Ahlan Samimi - Last Filed: 01/18/24 11:11> Labs 01/18/24 04:53 01/18/24 04:53 Labs: Laboratory Results - last 24 hr 01/16/24 01/18/24 22:44 04:53 WBC 5.1 RBC 3.35 L Hgb 9.6 L Hct 28.4 L MCV 84.7 MCH 28.7 MCHC 33.9 RDW 13.7 Plt Count 163 Neut % (Auto) 78.1 H Lymph % (Auto) 7.9 L [place] % (Auto) 13.0 Eos % (Auto) 0.8 L Baso % (Auto) 0.2 Neut # (Auto) 4000 Lymph # (Auto) 400 L [place] # (Auto) 700 Eos # (Auto) 0 Baso # (Auto) 0 Sodium 139 Potassium 3.4 Chloride 109 H Carbon Dioxide 22 BUN 55 H Creatinine 2.89 H Estimated GFR 22 L BUN/Creatinine Ratio 19.0 Glucose 124 H Calcium 8.3 L Procalcitonin 3.08 H A.calcoaceticus-baumannii cmplx PCR Not detected Bacteroides fragilis Not detected Antoinette albicans (PCR) Not detected Antoinette auris (PCR) Not detected C. glabrata (PCR) Not detected C. krusei (PCR) Not detected C. parapsilosis (PCR) Not detected C. tropicalis (PCR) Not detected C. neoform/gattii (PCR) Not detected Enterobacterales (PCR) Detected E. cloacae complex PCR Not detected Enterococc faecalis PCR Not detected Enterococc faecium PCR Not detected E. coli (PCR) Detected H. influenzae (PCR) Not detected Klebsiella aerogenes (PCR) Not detected Klebsiella oxytoca PCR Not detected Klebsiella pneumoniae Not detected List. monocytogenes PCR Not detected N. meningitidis (PCR) Not detected Proteus species (PCR) Not detected Salmonella spp. (PCR) Not detected Serratia marcescens PCR Not detected Staphylococcus sp PCR Not detected Staph aureus (PCR) Not detected mecA/C & MREJ Resist Gene Not applicable mecA/C-Methicil Resis Gene Not applicable mcr-1 Colistin Res Gene PCR Not detected Staph epidermidis (PCR) Not detected Staph lugdunensis PCR Not detected S. maltophilia (PCR) Not detected Streptococcus sp PCR Not detected Group A Strep (PCR) Not detected Strep agalactiae (PCR) Not detected Strep pneumoniae (PCR) Not detected P. aeruginosa (PCR) Not detected Vance/B-Vanco Res Genes Not applicable blaIMP Car res Gene PCR Not detected KPC-Carbap Res Gene PCR Not detected blaNDM Car Res Gene PCR Not detected OXA-48 Carbapenem Resis Gene (PCR) Not detected blaVIM Car Res Gene PCR Not detected CTX-M Gene Resistance (PCR) Not detected PFS <Andreia Riddle - Last Filed: 01/18/24 11:11> Social History household members: spouse Smoking Status: Former smoker Discharge Plan Discharge Plan Patient Disposition: Home Provider Discharge Comment: You were admitted due to pyelonephritis and bacteremia with E. coli. You will now be on daily Cipro to finish 2 weeks at home. Discharge orders & Medications Prescriptions: New ciprofloxacin HCl [Cipro] 500 mg tablet 500 mg PO DAILY 12 Days Qty: 12 0RF Rx Instructions: start on 01/18 Continued clopidogrel 75 mg tablet 75 mg PO DAILY aspirin 81 mg Tablet 81 mg PO DAILY sodium bicarbonate 650 mg Tablet 650 mg 1XD cyanocobalamin (vitamin B-12) 1,000 mcg/mL solution 1,000 mcg IM QMONTH sodium polystyrene sulfonate Powder 60 g PO 2XW insulin aspart U-100 [Novolog FlexPen U-100 Insulin] 100 unit/mL (3 mL) insulin pen 5 unit SUBCUT QD-TID rosuvastatin 40 mg tablet 40 mg PO DAILY insulin glargine [Lantus Solostar U-100 Insulin] 100 unit/mL (3 mL) insulin pen 25 unit SUBCUT ONCE PM Rx Instructions: Pt takes once in the morning, not at night Follow up/Referrals: Moise Chery MD [Primary Care Provider] - 2 Weeks Visit Report/Discharge Packet Stand Alone Forms: Patient Portal/API, Stroke Signs & Symptoms Discharge Data Primary Care Provider: Moise Chery
[2024-01-18] MEDS: CIPROFLOXACIN 400 MG/200 ML PIGGYBACK 200 MG IV (11:07)
--- NOTE | 2024-01-18 13:31 | PC.NURSE ---
Pt A&Ox4, VSS. IV removed, pt tolerated well. Discharge information reviewed with pt, pt able to teach back independently. Belongings gathered, pt taken downstairs via wheelchair by AVTAR Rogers and discharged home in taxi with .
== END 2024-01-18 12:30 | disposition home or self-care (01) | DRG 699 ==
LOC: ED 01-17 08:45 → AC 01-17 08:46
PROVIDERS: Emergency Medicine; Admitting Provider Student in an Organized Health Care Education/Training Program; Emergency Provider Emergency Medicine; PCP Internal Medicine; Referring Provider Emergency Medicine; Visit Provider Student in an Organized Health Care Education/Training Program
DX: T83.598A Infection and inflammatory reaction due to other prosthetic device, implant and graft in urinary system, initial encounter (principal); N10 Acute pyelonephritis; N17.9 Acute kidney failure, unspecified; E78.5 Hyperlipidemia, unspecified; E11.22 Type 2 diabetes mellitus with diabetic chronic kidney disease; N18.9 Chronic kidney disease, unspecified; B96.20 Unspecified Escherichia coli [E. coli] as the cause of diseases classified elsewhere; Y73.1 Therapeutic (nonsurgical) and rehabilitative gastroenterology and urology devices associated with adverse incidents; Z93.6 Other artificial openings of urinary tract status; Z87.891 Personal history of nicotine dependence; Z79.4 Long term (current) use of insulin
CPT/HCPCS: 36415; 36600; 71045; 74176; 80048; 80053; 81001; 81003; 82550; 82805; 82962; 83605; 83735; 83880; 84145; 84484; 85025; 85610; 85730; 87040; 87077; 87086; 87154; 87186; 87633; 93005; 96365; 96366; 99284; 99285; J0744; J1644; J1815; J1956